=== PATIENT | female | born 1940 | race African-American/Black ===

== ENCOUNTER 2018-04-24 10:22 | Inpatient (IN) | payer MEDICARE ==
--- NOTE | 2018-04-24 10:47 | ER Document Report ---
ED Medical Screen (RME) - General Chief Complaint: General Weakness Stated Complaint: WEAKNESS Time Seen by Provider: 04/24/18 10:39 TRAVEL OUTSIDE OF THE [place] IN LAST 30 DAYS: No Physical Exam - Vital signs Vitals: Temp Pulse Resp BP Pulse Ox 100.6 F H 80 20 157/70 H 94 04/24/18 10:32 04/24/18 10:32 04/24/18 10:32 04/24/18 10:32 04/24/18 10:32 Course - Re-evaluation Re-evalutation: 04/24/18 10:46 77-year-old female with congestive heart failure diabetes hyperlipidemia who is on warfarin and is well and amiodarone the presents for evaluation of profound fatigue over the last 2 days generalized malaise and foul-smelling urine. Is from [place] and flew here today to see her granddaughter. I have seen and evaluated this patient, they have undergone a rapid medical screening examination, they will require reevaluation further examination potential further diagnostics and disposition determination by secondary provider. - Vital Signs Vital signs: Temp Pulse Resp BP Pulse Ox 100.6 F H 80 20 157/70 H 94 04/24/18 10:32 04/24/18 10:32 04/24/18 10:32 04/24/18 10:32 04/24/18 10:32
[2018-04-24] MEDS ORDERED: ACETAMINOPHEN 325 MG TABLET PO ONE (10:48)
[2018-04-24] MEDS ORDERED: CEFTRIAXONE INJ 1000 MG VIAL IV ONE ×2 (10:48→13:15)
[2018-04-24] MEDS ORDERED: ONDANSETRON HCL INJ/PF 4 MG/2 ML SDV IV ONE (11:44)
[2018-04-24] MEDS ORDERED: LABETALOL HCL 200 MG TABLET PO ONE (11:45)
[2018-04-24] MEDS ORDERED: ISOSORBIDE DINITRATE 10 MG TABLET PO ONE (11:45)
[2018-04-24] MEDS ORDERED: AMIODARONE HCL 200 MG TABLET PO ONE (11:45)
--- NOTE | 2018-04-24 11:49 | ER Document Report ---
ED General - General Chief Complaint: General Weakness Stated Complaint: WEAKNESS Time Seen by Provider: 04/24/18 10:39 Mode of Arrival: Wheelchair Information source: Patient, Relative Notes: Patient presents complaining of fatigue and malodorous urine for the past 2 days. Patient just flew here this morning at 8 AM from [place]. Family does report fever with decreased appetite and nausea. Patient denies any chest pain, cough abdominal pain or back pain symptoms at this time. TRAVEL OUTSIDE OF THE [place] IN LAST 30 DAYS: No - HPI Onset: Yesterday Onset/Duration: Persistent Quality of pain: No pain Associated symptoms: Chills, Fever. denies: Chest pain, Nonproductive cough, Productive cough, Diarrhea, Headache, Nausea, Vomiting, Shortness of breath Exacerbated by: Denies Relieved by: Denies Similar symptoms previously: No Recently seen / treated by doctor: No - Related Data Allergies/Adverse Reactions: codeine Allergy (Verified 04/24/18 10:52) Penicillins Allergy (Verified 04/24/18 10:52) Past Medical History - General Information source: Patient, Relative - Social History Smoking Status: Former Smoker Frequency of alcohol use: None Drug Abuse: None Lives with: Family Family History: Reviewed & Not Pertinent Patient has suicidal ideation: No Patient has homicidal ideation: No - Past Medical History Cardiac Medical History: Reports: Hx Congestive Heart Failure, Hx Hypercholesterolemia, Hx Hypertension Neurological Medical History: Reports: Hx Cerebrovascular Accident - Right-sided weakness Endocrine Medical History: Reports: Hx Diabetes Mellitus Type 2 Renal/ Medical History: Denies: Hx Peritoneal Dialysis GI Medical History: Reports: Hx Gastroesophageal Reflux Disease Past Surgical History: Reports: Hx Bowel Surgery, Hx Open Heart Surgery - x2-replaced mitral valve Review of Systems - Review of Systems Constitutional: Chills, Fever EENT: No symptoms reported Cardiovascular: No symptoms reported. denies: Chest pain, Dizziness, Lig htheaded Respiratory: No symptoms reported. denies: Cough Gastrointestinal: Nausea, Poor appetite. denies: Abdominal pain, Diarrhea, Vomiting Genitourinary: Other - Foul-smelling urine. denies: Dysuria Female Genitourinary: No symptoms reported Musculoskeletal: No symptoms reported. denies: Back pain Skin: No symptoms reported Hematologic/Lymphatic: No symptoms reported Neurological/Psychological: Weakness. denies: Headaches Physical Exam - Vital signs Vitals: Temp Pulse Resp BP Pulse Ox 100.6 F H 80 20 157/70 H 94 04/24/18 10:32 04/24/18 10:32 04/24/18 10:32 04/24/18 10:32 04/24/18 10:32 - General General appearance: Alert In distress: None - HEENT Head: Normocephalic, Atraumatic Eyes: Normal Conjunctiva: Normal Nasal: Normal Mouth/Lips: Normal Mucous membranes: Normal Neck: Normal, Supple. No: Lymphadenopathy - Respiratory Respiratory status: No respiratory distress Chest status: Nontender Breath sounds: Rales. No: Rhonchi, Stridor, Wheezing Chest palpation: Normal - Cardiovascular Rhythm: Regular Heart sounds: S1 appreciated, S2 appreciated - Abdominal Inspection: Obese Distension: No distension Bowel sounds: Normal Tenderness: Nontender Organomegaly: No organomegaly - Back Back: Normal, Nontender. No: CVA tenderness - Extremities General upper extremity: Normal inspection, Normal ROM General lower extremity: Normal inspection, Normal ROM. No: Edema - Neurological Neuro grossly intact: Yes Cognition: Normal [place] Coma Scale Eye Opening: Spontaneous Julius Coma Scale Verbal: Oriented Julius Coma Scale Motor: Obeys Commands Julius Coma Scale Total: 15 - Psychological Associated symptoms: Normal affect, Normal mood - Skin Skin Temperature: Warm Skin Moisture: Dry Skin Color: Normal Course - Re-evaluation Re-evalutation: 04/24/18 15:05 Patient continues to deny any complaints aside from fatigue and weakness. We are still waiting a urinalysis as lab has yet to receive the urine specimen. Patient with elevated liver function tests, BMP, BUN and creatinine as well as troponin. Patient denies any chest pain back pain or abdominal pain. EKG without any findings worrisome for acute [place]. Consulted with Dr. Heredia regarding patient presentation. Recommends waiting urinalysis results and then advises consultation with hospitalist here for admission. Does not recommend transfer at this time. No additional orders advised at this time. 04/24/18 16:[address] Lyon who agrees to come and evaluate patient for admission. 04/24/18 17:36 Dr. Lyon states that daughter prefers to have patient transferred to [facility] and or [facility] at this time given her concerns over patient's elevated troponin test. Dr. Lyon states that he did speak with Dr. Nesbitt, the labor mediator, and both of them are comfortable with accepting this patient for admission here but daughter is insistent that patient be transferred. 04/24/18 17:40 Call placed to [facility] at capacity and are not accepting pt's with Mrs Perea diagnosis at this time. Spoke with [facility] transfer bejou who states that they are not accepting patients who are not ICU, acute stroke, pediatrics, high school home economics teacher or STEMI 04/24/18 17:55 Discussed with patient's daughter conversations with yesy Olvera as well as Juan, and the fact that patient does not presently meet their criteria to be accepted as she is not having a STEMI. Patient continues without any chest pain back pain or abdominal pain symptoms. Vital signs are stable at this time. Daughter is agreeable with having patient admitted here. Spoke with Dr. Lyon who does accept patient for admission to telemetry floor. - Vital Signs Vital signs: Temp Pulse Resp BP Pulse Ox 99.3 F 80 27 H 130/56 H 100 04/24/18 15:06 04/24/18 10:32 04/24/18 17:01 04/24/18 17:01 04/24/18 17:01 - Laboratory Result Diagrams: 04/24/18 13:19 04/24/18 13:19 Laboratory results interpreted by me: 04/24/18 04/24/18 04/24/18 12:48 13:19 13:19 WBC 11.2 H Hgb 11.5 L Hct 34.9 L RDW 15.7 H Plt Count 105 L Seg Neutrophils % 86.0 H Lymphocytes % 5.9 L Absolute Neutrophils 9.6 H PT 22.7 H Chloride BUN Creatinine Est GFR ( Amer) Est GFR (Non-Af Amer) Glucose POC Glucose 225 H Direct Bilirubin AST ALT NT-Pro-B Natriuret Pep Urine Protein Urine Blood Ur Leukocyte Esterase 04/24/18 04/24/18 04/24/18 13:19 13:19 15:10 WBC Hgb Hct RDW Plt Count Seg Neutrophils % Lymphocytes % Absolute Neutrophils PT Chloride 109 H BUN 45 H Creatinine 1.81 H Est GFR ( Amer) 33 L Est GFR (Non-Af Amer) 27 L Glucose 216 H POC Glucose Direct Bilirubin 0.8 H AST 629 H ALT 370 H NT-Pro-B Natriuret Pep 27010 H Urine Protein >=500 H Urine Blood MODERATE H Ur Leukocyte Esterase SMALL H Labs- Entire Visit 04/24/18 04/24/18 04/24/18 12:48 13:19 13:19 WBC 11.2 H RBC 3.86 Hgb 11.5 L Hct 34.9 L MCV 90 MCH 29.7 MCHC 32.8 RDW 15.7 H Plt Count 105 L Seg Neutrophils % 86.0 H Lymphocytes % 5.9 L Monocytes % 7.7 Eosinophils % 0.0 Basophils % 0.4 Absolute Neutrophils 9.6 H Absolute Lymphocytes 0.7 Absolute Monocytes 0.9 Absolute Eosinophils 0.0 Absolute Basophils 0.0 PT 22.7 H INR 1.90 VBG pH VBG pCO2 VBG HCO3 VBG Base Excess Sodium Potassium Chloride Carbon Dioxide Anion Gap BUN Creatinine Est GFR ( Amer) Est GFR (Non-Af Amer) Glucose POC Glucose 225 H Lactic Acid Calcium Total Bilirubin Direct Bilirubin Neonat Total Bilirubin Neonat Direct Bilirubin Neonat Indirect Bili AST ALT Alkaline Phosphatase Troponin I NT-Pro-B Natriuret Pep Total Protein Albumin Lipase Urine Color Urine Appearance Urine pH Ur Specific Opal Urine Protein Urine Glucose (UA) Urine Ketones Urine Blood Urine Nitrite Urine Bilirubin Urine Urobilinogen Ur Leukocyte Esterase Urine WBC (Auto) Urine RBC (Auto) Urine Bacteria (Auto) Urine WBC Clumps Squamous Epi Cells Auto Amorphous Sediment Auto Urine Mucus (Auto) Urine Ascorbic Acid 04/24/18 04/24/18 04/24/18 13:19 13:19 13:19 WBC RBC Hgb Hct MCV MCH MCHC RDW Plt Count Seg Neutrophils % Lymphocytes % Monocytes % Eosinophils % Basophils % Absolute Neutrophils Absolute Lymphocytes Absolute Monocytes Absolute Eosinophils Absolute Basophils PT INR VBG pH 7.36 VBG pCO2 37.7 VBG HCO3 21.0 VBG Base Excess -4.0 Sodium 139.3 Potassium 4.1 Chloride 109 H Carbon Dioxide 23 Anion Gap 7 BUN 45 H Creatinine 1.81 H Est GFR ( Amer) 33 L Est GFR (Non-Af Amer) 27 L Glucose 216 H POC Glucose Lactic Acid Calcium 8.9 Total Bilirubin 1.3 Direct Bilirubin 0.8 H Neonat Total Bilirubin Not Reportable Neonat Direct Bilirubin Not Reportable Neonat Indirect Bili Not Reportable AST 629 H ALT 370 H Alkaline Phosphatase 64 Troponin I 0.121 NT-Pro-B Natriuret Pep 10553 H Total Protein 6.5 Albumin 3.5 Lipase 96.0 Urine Color Urine Appearance Urine pH Ur Specific Opal Urine Protein Urine Glucose (UA) Urine Ketones Urine Blood Urine Nitrite Urine Bilirubin Urine Urobilinogen Ur Leukocyte Esterase Urine WBC (Auto) Urine RBC (Auto) Urine Bacteria (Auto) Urine WBC Clumps Squamous Epi Cells Auto Amorphous Sediment Auto Urine Mucus (Auto) Urine Ascorbic Acid 04/24/18 04/24/18 13:19 15:10 WBC RBC Hgb Hct MCV MCH MCHC RDW Plt Count Seg Neutrophils % Lymphocytes % Monocytes % Eosinophils % Basophils % Absolute Neutrophils Absolute Lymphocytes Absolute Monocytes Absolute Eosinophils Absolute Basophils PT INR VBG pH VBG pCO2 VBG HCO3 VBG Base Excess Sodium Potassium Chloride Carbon Dioxide Anion Gap BUN Creatinine Est GFR ( Amer) Est GFR (Non-Af Amer) Glucose POC Glucose Lactic Acid 1.2 Calcium Total Bilirubin Direct Bilirubin Neonat Total Bilirubin Neonat Direct Bilirubin Neonat Indirect Bili AST ALT Alkaline Phosphatase Troponin I NT-Pro-B Natriuret Pep Total Protein Albumin Lipase Urine Color YELLOW Urine Appearance CLOUDY Urine pH 5.0 Ur Specific Opal 1.014 Urine Protein >=500 H Urine Glucose (UA) NEGATIVE Urine Ketones NEGATIVE Urine Blood MODERATE H Urine Nitrite NEGATIVE Urine Bilirubin NEGATIVE Urine Urobilinogen NEGATIVE Ur Leukocyte Esterase SMALL H Urine WBC (Auto) 45 Urine RBC (Auto) 3 Urine Bacteria (Auto) 3+ Urine WBC Clumps MOD Squamous Epi Cells Auto 1 Amorphous Sediment Auto TRACE Urine Mucus (Auto) RARE Urine Ascorbic Acid NEGATIVE - Diagnostic Test Radiology reviewed: Reports reviewed Discharge - Discharge Clinical Impression: Weakness, Abnormal liver function test, Elevated troponin Fever Qualifiers: Fever type: unspecified Qualified Code(s): R50.9 - Fever, unspecified UTI (urinary tract infection) Qualifiers: Urinary tract infection type: site unspecified Hematuria presence: with hematuria Qualified Code(s): N39.0 - Urinary tract infection, site not specified Condition: Fair Disposition: ADMITTED INPATIENT Admitting Provider: Hospitalist Unit Admitted: Telemetry
[2018-04-24 13:42] LABS: ABSOLUTE LYMPHOCYTES (AUTO) 0.7 10^3/uL (0.5-4.7); ABSOLUTE MONOCYTES (AUTO) 0.9 10^3/uL (0.1-1.4); ABSOLUTE NEUT (AUTO) 9.6 10^3/uL (1.7-8.2); BASOPHILS % (AUTO) 0.4 % (0-2); HEMATOCRIT 34.9 % (36.0-47.0); HEMOGLOBIN 11.5 g/dL (12.0-15.5); LYMPHOCYTES % (AUTO) 5.9 % (13-45); MEAN CORPUSCULAR HEMOGLOBIN 29.7 pg (27.0-33.4); MEAN CORPUSCULAR HGB CONC 32.8 g/dL (32.0-36.0); MEAN CORPUSCULAR VOLUME 90 fl (80-97); MONOCYTES % (AUTO) 7.7 % (3-13); PLATELET COUNT 105 10^3/uL (150-450); RED BLOOD COUNT 3.86 10^6/uL (3.72-5.28); RED CELL DISTRIBUTION WIDTH 15.7 % (11.5-14.0); TOTAL CELLS COUNTED % (AUTO) 100 %; WHITE BLOOD COUNT 11.2 10^3/uL (4.0-10.5)
[2018-04-24 13:44] LABS: VENOUS BLOOD PCO2 37.7 mmHg (35-63); VENOUS BLOOD PH 7.36 (7.30-7.42)
[2018-04-24 13:48] LABS: PROTHROMBIN TIME 22.7 SEC (11.4-15.4)
--- NOTE | 2018-04-24 13:53 | RADIOLOGY REPORT (SQ) ---
EXAM DESCRIPTION: CHEST 2 VIEWS COMPLETED DATE/TIME: 04/24/2018 1:38 pm REASON FOR STUDY: fever COMPARISON: None. EXAM PARAMETERS: NUMBER OF VIEWS: two views TECHNIQUE: Digital Frontal and Lateral radiographic views of the chest acquired. RADIATION DOSE: NA LIMITATIONS: none FINDINGS: LUNGS AND PLEURA: No opacities, masses or pneumothorax. No pleural effusion. MEDIASTINUM AND HILAR STRUCTURES: No masses or contour abnormalities. HEART AND VASCULAR STRUCTURES: Cardiomegaly with left chest multi lead pacer status post median wilson otomy. BONES: No acute findings. HARDWARE: None in the chest. OTHER: No other significant finding. IMPRESSION: Cardiomegaly without acute abnormality of the lungs. No focal airspace opacity. TECHNICAL DOCUMENTATION: JOB ID: [id number] [employer]- All Rights Reserved Reading location - IP/workstation name: [email or web address]
[2018-04-24 14:07] LABS: ALANINE AMINOTRANSFERASE 370 U/L (9-52); ALBUMIN 3.5 g/dL (3.5-5.0); ALKALINE PHOSPHATASE 64 U/L (38-126); ANION GAP 7 (5-19); ASPARTATE AMINO TRANSFERASE 629 U/L (14-36); BILIRUBIN,DIRECT 0.8 mg/dL (0.0-0.4); BILIRUBIN,TOTAL 1.3 mg/dL (0.2-1.3); BLOOD UREA NITROGEN 45 mg/dL (7-20); CALCIUM 8.9 mg/dL (8.4-10.2); CARBON DIOXIDE 23 mmol/L (22-30); CHLORIDE 109 mmol/L (98-107); GLUCOSE 216 mg/dL (75-110); POTASSIUM 4.1 mmol/L (3.6-5.0); SODIUM 139.3 mmol/L (137-145); TOTAL PROTEIN 6.5 g/dL (6.3-8.2)
[2018-04-24 14:29] LABS: TROPONIN I 0.121 ng/mL
[2018-04-24 15:23] LABS: AMORPHOUS SEDIMENT,URINE TRACE /HPF; APPEARANCE,URINE CLOUDY; BILIRUBIN,URINE NEGATIVE (NEGATIVE); COLOR,URINE YELLOW; GLUCOSE, URINE NEGATIVE (NEGATIVE); KETONES,URINE NEGATIVE (NEGATIVE); LEUKOCYTE ESTERASE,URINE SMALL (NEGATIVE); NITRITE,URINE NEGATIVE (NEGATIVE); PROTEIN,URINE >=500 mg/dL (NEGATIVE); URINE SPECIFIC GRAVITY 1.014; UROBILINOGEN,URINE NEGATIVE mg/dL (<2.0)
[2018-04-24] MEDS ORDERED: GLUCAGON,HUMAN RECOMB 1 MG INJ IM PRN (18:10)
[2018-04-24] MEDS ORDERED: DEXTROSE 50%-WATER 25 GM/50 ML DISP.SYRIN IV PRN ×2 (18:10)
[2018-04-24] MEDS ORDERED: DEXTROSE 40% GEL 15 GM TUBE PO PRN ×2 (18:10)
[2018-04-24] MEDS ORDERED: HYDRALAZINE HCL INJ/PF 20 MG/1 ML SDV IV PRN (18:12)
--- NOTE | 2018-04-24 18:26 | RADIOLOGY REPORT (SQ) ---
EXAM DESCRIPTION: CT ABD/PELVIS NO ORAL OR IV COMPLETED DATE/TIME: 04/24/2018 6:11 pm REASON FOR STUDY: acute renal failure,elevated liver enzymes COMPARISON: None. TECHNIQUE: CT scan of the abdomen and pelvis performed without intravenous or oral contrast. Images reviewed with lung, soft tissue, and bone windows. Reconstructed coronal and sagittal MPR images revi ewed. All images stored on PACS. All CT scanners at this facility use dose modulation, iterative reconstruction, and/or weight based d osing when appropriate to reduce radiation dose to as low as reasonably achievable (ALARA). [facility]: Dose Right [facility]: CareDose [facility]: Dose Right [facility]: Teradose 4D [facility]: [facility] RADIATION DOSE: CT Rad equipment meets quality standard of care and radiation dose reduction techniq ues were employed. CTDIvol: 14.8 mGy. DLP: 778 mGy-cm.mGy. LIMITATIONS: None. FINDINGS: LOWER CHEST: No significant findings. No nodules or infiltrates. NON-CONTRASTED LIVER, SPLEEN, ADRENALS: Evaluation limited by lack of IV contrast. No identified sign ificant masses. PANCREAS: No masses. No peripancreatic inflammatory changes. GALLBLADDER: There appear to be some tiny gallstones. RIGHT KIDNEY AND URETER: No suspicious masses. Assessment limited by lack of IV contrast. There are some small vascular calcifications. No hydronephrosis or hydroureter. LEFT KIDNEY AND URETER: No suspicious masses. Assessment limited by lack of IV contrast. A small va scular calcification is present. No hydronephrosis or hydroureter. AORTA AND RETROPERITONEUM: No aneurysm. No retroperitoneal masses or adenopathy. BOWEL AND PERITONEAL CAVITY: No obvious masses or inflammatory changes. No free fluid. APPENDIX: Normal. PELVIS, BLADDER, AND ABDOMINAL WALL:No abnormal masses. No free fluid. Bladder normal. BONES: No significant findings. OTHER: No other significant finding. IMPRESSION: No acute findings in the abdomen or pelvis. There are some very small renal vascular ca lcifications. COMMENT: Quality ID # [id number]: Final reports with documentation of one or more dose reduction techniques (e.g., Automated exposure control, adjustment of the mA and/or kV according to patient size, use of iterative reconstruction technique) TECHNICAL DOCUMENTATION: JOB ID: [id number] [employer]- All Rights Reserved Reading location - IP/workstation name: [email or web address]
[2018-04-24] MEDS ORDERED: ACETAMINOPHEN 325 MG TABLET PO PRN (18:30)
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
[2018-04-24] MEDS ORDERED: HEPARIN SOD (PORCINE) 5,000 UNIT/ML 1 ML SYRINGE SUBCUT SCH (22:00)
[2018-04-24] MEDS ORDERED: INSULIN GLARGINE,HUM.REC.ANLOG 300 UNIT/3 ML INSULN.PEN SUBCUT SCH (22:00)
--- NOTE | 2018-04-24 22:55 | EKG REPORT ---
SEVERITY:- ABNORMAL ECG - ACCELERATED JUNCTIONAL RHYTHM PROBABLE LVH WITH SECONDARY REPOL ABNRM BORDERLINE PROLONGED QT INTERVAL : Confirmed by: Jaclyn Zamarripa MD 24-Apr-2018 22:54:51
[2018-04-24] MEDS: BUMETANIDE 1 MG TABLET PO SCH (22:57)
[2018-04-24] MEDS: ASPIRIN 81 MG TABLET, CHEWABLE PO SCH (22:57)
[2018-04-24] MEDS: WARFARIN SODIUM 3 MG TABLET PO SCH (22:58)
[2018-04-24] MEDS: ATORVASTATIN CALCIUM 20 MG TABLET PO SCH (22:58)
[2018-04-25 05:22] LABS: ABSOLUTE LYMPHOCYTES (AUTO) 1.2 10^3/uL (0.5-4.7); ABSOLUTE NEUT (AUTO) 6.5 10^3/uL (1.7-8.2); BASOPHILS % (AUTO) 0.6 % (0-2); EOSINOPHILS % (AUTO) 0.5 % (0-6); HEMATOCRIT 30.3 % (36.0-47.0); LYMPHOCYTES % (AUTO) 13.5 % (13-45); MEAN CORPUSCULAR HEMOGLOBIN 30.2 pg (27.0-33.4); MEAN CORPUSCULAR HGB CONC 33.1 g/dL (32.0-36.0); MEAN CORPUSCULAR VOLUME 91 fl (80-97); MONOCYTES % (AUTO) 11.9 % (3-13); RED BLOOD COUNT 3.32 10^6/uL (3.72-5.28); RED CELL DISTRIBUTION WIDTH 15.9 % (11.5-14.0); SEGMENTED NEUTROPHILS % (AUTO) 73.5 % (42-78); TOTAL CELLS COUNTED % (AUTO) 100 %; WHITE BLOOD COUNT 8.8 10^3/uL (4.0-10.5)
[2018-04-25 05:25] LABS: A TYPE INFLUENZA AG NEGATIVE (NEGATIVE); B INFLUENZA AG NEGATIVE (NEGATIVE)
[2018-04-25 05:40] LABS: ALANINE AMINOTRANSFERASE 404 U/L (9-52); ALBUMIN 2.7 g/dL (3.5-5.0); ALKALINE PHOSPHATASE 59 U/L (38-126); ANION GAP 8 (5-19); ASPARTATE AMINO TRANSFERASE 466 U/L (14-36); BILIRUBIN,DIRECT 0.5 mg/dL (0.0-0.4); BILIRUBIN,TOTAL 0.7 mg/dL (0.2-1.3); BLOOD UREA NITROGEN 53 mg/dL (7-20); CALCIUM 8.5 mg/dL (8.4-10.2); CARBON DIOXIDE 21 mmol/L (22-30); CHLORIDE 107 mmol/L (98-107); GLUCOSE 275 mg/dL (75-110); POTASSIUM 4.2 mmol/L (3.6-5.0); SODIUM 135.5 mmol/L (137-145); TOTAL PROTEIN 5.3 g/dL (6.3-8.2)
[2018-04-25 05:48] LABS: CREATINE KINASE MB 0.77 ng/mL (<4.55); TROPONIN I 0.093 ng/mL
[2018-04-25 05:55] LABS: PLATELET COUNT 85 10^3/uL (150-450)
[2018-04-25] MEDS: INSULIN LISPRO 100 UNIT/ML 3 ML VIAL SUBCUT PRN ×2 (08:14→15:22)
[2018-04-25] MEDS: CEFTRIAXONE 1 GM/D5W RTU 1 GM/50 ML RTUPB IV SCH (10:33)
[2018-04-25] MEDS: BUMETANIDE 1 MG TABLET PO SCH ×2 (10:33→10:42)
[2018-04-25 11:33] LABS: CREATINE KINASE MB 0.89 ng/mL (<4.55); TROPONIN I 0.07 ng/mL
--- NOTE | 2018-04-25 12:41 | EKG REPORT ---
SEVERITY:- ABNORMAL ECG - ATRIAL-PACED COMPLEXES PROLONGED QT INTERVAL : Confirmed by: Jaclyn Zamarripa MD 25-Apr-2018 12:41:02
--- NOTE | 2018-04-25 12:42 | EKG REPORT ---
SEVERITY:- ABNORMAL ECG - ATRIAL-PACED COMPLEXES NONSPECIFIC INTRAVENTRICULAR CONDUCTION DELAY : Confirmed by: Jaclyn Zamarripa MD 25-Apr-2018 12:41:08
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
[2018-04-25 17:01] LABS: CREATINE KINASE MB 0.99 ng/mL (<4.55); TROPONIN I 0.05 ng/mL
[2018-04-25] MEDS ORDERED: LIDOCAINE 2% VISCOUS SOLN 20 ML UDCUP PO ONE (18:15)
[2018-04-25] MEDS ORDERED: MAG HYDROX/AL HYDROX/SIMETH SUSP 30 ML UDCUP PO ONE (18:20)
[2018-04-25] MEDS ORDERED: METOCLOPRAMIDE HCL ORAL SOLN 10 MG/10 ML UDCUP PO ONE (18:20)
[2018-04-25] MEDS: ASPIRIN 81 MG TABLET, CHEWABLE PO SCH (21:37)
[2018-04-25] MEDS: INSULIN GLARGINE,HUM.REC.ANLOG 300 UNIT/3 ML INSULN.PEN SUBCUT SCH (21:37)
[2018-04-25] MEDS: WARFARIN SODIUM 3 MG TABLET PO SCH (21:37)
[2018-04-25] MEDS: ATORVASTATIN CALCIUM 20 MG TABLET PO SCH (21:37)
--- NOTE | 2018-04-25 22:12 | PDOC CONSULTATION ---
Consultation-Blank Consultation: CARDIOLOGY CONSULTATION by Dr. Jaclyn Zamarripa on 04/25/2018. Patient was seen on 04/25/2018 at 4 PM. 60 minutes spent on the patient, with more than 50% of time spent in direct patient care a few records from her aquatic director from [place] were reviewed. Await full records from [place], including her ho spital admission and her valve replacement surgical report. REASON FOR CONSULTATION: Patient with a history of mitral valve replacement, chronic kidney disease, admitted with generalized weakness diagnosis urinary tract infection, but with the per patient's troponin I being elevated. History PRESENT ILLNESS: Patient admitted with fever chills and rigors and left flank pain, and has been diagnosed and treated with antibiotics for acute pyelonephritis. Incidentally the patient's troponin I was slightly elevated with a peak troponin 0 0.152. The patient has no chest pain, and there is no major EKG changes. As per the patient both times when she had a mitral valve replaced in 1977 in 1989 she had no coronary artery disease, and there was no coronary artery bypass graft placement. Hence this is most likely secondary to supply demand mismatch. The patient denies any palpitations. There is no recurrence of TIA CVA symptoms . As per the patient and the patient's granddaughter the patient's renal function is at baseline, and is a stage IV chronic kidney disease. She has no palpitations or recurrence of atrial fibrillation. There is no dizziness, or near syncope or syncope. There is no bleeding on Coumadin. PAST MEDICAL ILLNESS: History of hypertension present history of diabetes mellitus present. History of mitral valve replacement earlier in the of DHE drip porcine valve replacement in the mitral valve position. Subsequently due to restenosis the patient had a [employer]t mitral valve replacement in 1989. Subsequently she has been on Coumadin. She denies history of IN or coronary artery disease or anginal symptoms. 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 Since then no syncope. She has been maintained in sinus mechanism on amiodarone, although admission EKG sinus is suggestive of accelerated junctional rhythm. The colton ent's blood pressure stable, and the patient has no symptoms or hemodynamic compromise. She has a history of diabetes mellitus type 2 insulin-dependent. There is no history of thyroid disease. There is no history of headaches migraines or seizures. She has a prior history of CVA with right-sided weakness which is very minimal, she is able to ambulate with a walker. It is not clear what the patient has COPD, but the patient is on Advair Diskus for this. She has a prior history of congestive heart failure, but none recently, and especially for the past several years there is been no recurrence of congestive heart failure. There is no history of syncope. At present she has no recent leg edema. She claims she had a stent placed in the right groin artery. PAST SURGICAL HISTORY: Porcine mitral valve replacement in 1977, and subsequently Saint [employer]t prosthetic mitral valve replacement in 1989. No history of coronary bypass grafts. History of permanent pacemaker placement. History of? Stent in the right iliac versus lower aortic stent. SOCIAL HISTORY: The patient quit smoking long time ago. There is no history of EtOH abuse. ALLERGIES: She is allergic to codeine and penicillins. FAMILY HISTORY: Is positive for hypertension, and history of myocardial infarction is in a sister, at the age of 60. DISPOSITION: The patient is a full code. Her grand daughter is her surrogate healthcare decision maker. REVIEW SYSTEMS: CONSTITUTIONAL: Complains of fever chills rigors. She also has had left flank pain. HEAD: Denies headaches or head injury. EYES: NO HISTORY OF AMBLYOPIA DIPLOPIA. NO HISTORY OF AMAUROSIS FUGAX. Ears: No history of hearing loss. No history of tinnitus. No history of recurrent ear infections. No vertigo. NOSE: No history of hayfever no history of nosebleeds. No history of nasal polyps. MOUTH: No altered taste sensation. No bleeding from the gums. THROAT: No history of odynophagia or dysphagia, no recurrent sore throats. SKIN: No history of pruritus. No history of psoriasis. No history of skin cancer. No history of yellowish discoloration of the skin. NECK: No history of neck pain. No swelling in the neck. No goiter. LUNGS: She has a questionable history of COPD. No recent wheezing or cough or sputum production. No symptoms of upper or lower respiratory tract infections. No history of pulmonary embolism. No history of sleep apnea. No history of pleuritic chest pain. No history of hemoptysis. CARDIAC: History of hypertension present no history of coronary artery disease or IN or anginal symptoms. History of mitral valve replacement x2 as mentioned earlier. No history of endocarditis. Past history of congestive heart failure none several years. History of atrial fibrillation paroxysmal. Note that the patient's echo in [place] showed moderate to severe pulmonary hypertension. Normal left ventricular ejection fraction. No recent symptoms of PND orthopnea or leg edema. ENDOCRINE: History of diabetes mellitus type 2 insulin-dependent. No polydipsia polyuria. No history of heat or cold intolerance. No hirsutism. No excessive sweating. MUSCULOSKELETAL: Denies arthritis or collagen vascular disease. GI: History of GERD present but no history of GI bleed. No history of hepatitis.. No history of jaundice. No history of ascites. Note this admission the patient's liver function tests are abnormal. No abdominal pain. No GI bleed. No altered bowel movements. RENAL: Patient admitted with left flank pain and symptoms of UTI. She has a diagnosis of pyelonephritis, and is being treated with antibiotics. She has history of chronic kidney disease stage IV. She does have some dysuria. And pyuria. But no hematuria.. COMSEC MANAGER: Prior history of CVA with right-sided weakness which is r ecovered and she is subtle/minimal right-sided weakness. She is able to walk with a walker. No history of recurrence of symptoms of TIA CVA. No sleep apnea. No history of headaches migraines or seizures. PSYCHIATRIC: No history of anxiety or depression. No suicidal ideation no homicidal ideation. VASCULAR: History of peripheral vascular disease, the patient alludes vaguely to having a stent placed in the right groin artery versus lower abdominal aorta. Will need records for this. No symptoms of claudication. No DVT. HEMATOLOGICAL: No history of bleeding diathesis no history of clotting disorders. PHYSICAL EXAMINATION: The patient is mildly obese. In no acute distress. She is well-groomed 04/25/18 12:11 Temperature 98.6 F Temperature Oral Source Pulse Rate 76 Respiratory 20 Rate Blood Pressure 111/55 L Blood Pressure 73 Mean BP Location Left Arm BP Position Sitting O2 Sat by Pulse 98 Oximetry Oxygen Delivery Room Air Method HEAD: Is atraumatic normocephalic. EYES: Pupils are equal round regular reactive to light accommodation. Extraocular movements are normal. There is no clinical pallor. There is no scleral icterus. EARS: Tympanic membranes are intact. External auditory canals are clear. NOSE: Nasal mucous membranes are moist. There is no inflammation of the nasal mucous membrane. There is no deviated nasal septum. MOUTH: Mucous membranes of the mouth are moist. Tongue is moist. There is no ulcers. There is no bleeding of the gums. THROAT: There is no redness of the oropharynx. There is no exudates. SKIN: There is no petechia or ecchymosis. There is no skin lesions or skin rashes. NECK: Is supple. There is no JVD. Carotids are equal there is no bruits. There is no lymphadenopathy. There is no goiter. Trachea central. There is no accessory muscle respiration use. LUNGS: Is clear to auscultation percussion, without any rhonchi rales or wheezing. There is no chest wall tenderness. HEART: S1-S2 is heard. There is no S3 gallop there is no S4 gallop. There is a crisp click of the prosthetic mitral valve heard. There is no mitral regurgitation. There is no aortic stenosis or aortic regurgitation murmur. There is no rub. ABDOMEN: Is soft. There is nontender. There is no hepatosplenomegaly. Bowel sounds are well heard. EXTREMITIES: Femorals are slightly diminished. There is no femoral bruits. Leg pulses are well felt. There is no pedal edema. There is no DVT or cellulitis. There is no calf tenderness. There is no cyanosis or clubbing. COMSEC MANAGER: Patient is conscious awake alert oriented x3, with subtle right-sided weakness. PSYCHIATRIC: The patient judgment and insight are intact her affect is normal. 04/24/18 04/24/18 04/24/18 13:19 13:19 15:45 Sodium Potassium Chloride Carbon Dioxide Anion Gap BUN Creatinine Est GFR ( Amer) Glucose POC Glucose Lactic Acid 1.2 Calcium Total Bilirubin Direct Bilirubin Neonat Total Bilirubin Neonat Direct Bilirubin Neonat Indirect Bili AST ALT Alkaline Phosphatase Troponin I 0.121 0.152 NT-Pro-B Natriuret Pep 48762 H Total Protein Albumin 04/24/18 04/25/18 21:08 04:27 Sodium 135.5 L Potassium 4.2 Chloride 107 Carbon Dioxide 21 L Anion Gap 8 BUN 53 H Creatinine 2.41 H Est GFR ( Amer) 24 L Glucose 275 H POC Glucose 206 H Lactic Acid Calcium 8.5 Total Bilirubin 0.7 Direct Bilirubin 0.5 H Neonat Total Bilirubin Not Reportable Neonat Direct Bilirubin Not Reportable Neonat Indirect Bili Not Reportable AST 466 H ALT 404 H Alkaline Phosphatase 59 Troponin I NT-Pro-B Natriuret Pep Total Protein 5.3 L Albumin 2.7 L 04/24/18 18:10 Dextrose 50%-Water [Dextrose Inj 50% Syringe (25 gm/50 ml)] 12.5 gm IV PRN PRN Dextrose 50%-Water [Dextrose Inj 50% Syringe (25 gm/50 ml)] 25 gm IV PRN PRN Dextrose [Glutose 40% Gel 15 gm Tube] 15 gm PO PRN PRN Dextrose [Glutose 40% Gel 15 gm Tube] 30 gm PO PRN PRN Glucagon,Human Recombinant [Glucagen Inj 1 mg Vial] 1 mg IM PRN PRN Insulin Lispro [Humalog Insulin 100 Unit/1 ml 3 ml Vial] 0 - 12 unit SUBCUT ACHSP PRN 04/24/18 18:12 Hydralazine HCl [Apresoline Inj/Pf 20 mg/1 ml Sdv] 10 mg IV Q4HP PRN 04/24/18 18:30 Acetaminophen [Tylenol 325 mg Tablet] 650 mg PO Q6H PRN 04/24/18 19:15 Bumetanide [Bumex 1 mg Tablet] 1 mg PO DAILY 04/24/18 22:00 Aspirin [Aspirin 81 mg Chewable Tablet] 81 mg PO QHS Atorvastatin Calcium [Lipitor 20 mg Tablet] 20 mg PO QHS Warfarin Sodium [Coumadin 3 mg Tablet] 3 mg PO QHS 04/25/18 10:00 Ceftriaxone 1 gm/D5w RTU [Rocephin RTU 1 gm/D5w 50 ml Premix] 1 gm in 50 ml IV DAILY 04/25/18 18:15 Lidocaine HCl [Xylocaine 2% Viscous Soln 20 ml Udcup] 15 ml PO NOW ONE 04/25/18 18:20 Mag Hydrox/Al Hydrox/Simeth [Maalox Plus Susp 30 Udcup] 30 ml PO NOW ONE Metoclopramide HCl [Reglan Oral Soln 10 mg/10 ml Udcup] 10 mg PO NOW ONE 04/25/18 22:00 Insulin Glargine,Hum.rec.anlog [Lantus Insulin Inj 300 Unit/3 ml Pen] 18 unit SUBCUT QHS 04/26/18 06:00 Lansoprazole [Prevacid 30 mg Odt Tablet] 30 mg PO Q6AM 04/26/18 13:00 Warfarin Sodium [Coumadin 5 mg Tablet] 5 mg PO NOW ONE 04/26/18 18:00 Hydralazine HCl [Apresoline 25 mg Tablet] 25 mg PO BID CHEST X-ray: Shows cardiomegaly without any infiltrates. EKG: Shows accelerated junctional rhythm versus atrial paced rhythm with ventricular capture. LVH with possible strain pattern. The patient's abdominal CT: Shows no acute findings. There is small renal vascular calcifications. IMPRESSION/RECOMMENDATION: 1.PYELONEPHRITIS/UTI: Patient improving continue antibiotics. 2. Elevated troponin I: No evidence of non-ST elevation IN. Troponin I elevation is secondary to supply demand mismatch, due to the patient's acute infection, and chronic kidney disease. 3. Status post mitral valve replacement x2. In 1977 the patient had a porcine valve replacement. Subsequently due to restenosis the patient had a [employer] metallic mitral valve replacement. Patient on Coumadin. INR on Coumadin is subtherapeutic. We will give a dose of 5000 units of heparin and give an extra dose of Coumadin 5 mg p.o. now continue patient on 3 nightly usual dose of Coumadin. Recheck the patient's PT/INR in the a.m. Note that the patient states that she had no coronary artery disease at the time of mitral valve replacements. 4. Hypertension: Seems to be slightly elevated. Will increase antihyp ertensives as needed. 5. Diabetes mellitus. Continue antidiabetic treatment. 6. Chronic kidney disease stage IV: Awaiting nephrology consult. 7. Normal normal left ventricular ejection fraction, 8. Moderate to severe pulmonary hypertension with right ventricle systolic pressure of 63 mmHg by report of echo, done in [place], on chart. 9.? COPD. 10. History of paroxysmal atrial fibrillation: No recurrence. 11. History of permanent pacemaker placement for tachybradycardia syndrome. 12. Old CVA, with residual very minimal right-sided weakness. 13. Abnormal liver function tests. We will get records to see if the patient's amiodarone can be decreased. 14. GERD: Stable on current treatment. We will get records from [place]. We got some office records of her ec hocardiogram, which shows normal left atrial Function. And moderate to severe tricuspid regurgitation, with moderate to severe pulmonary hypertension with right ventricle systolic pressure of 63 mmHg. In view of the patient's abnormal liver function tests, and the patient's pulmonary hypertension, will either try to decrease the patient's amiodarone, or totally stop the patient's amiodarone. We will wait till the records are obtained. Medical decision making is of high complexity. Medications have been reviewed. We will also get thyroid function tests. Later would recommend that the patient have an outpatient full PFTs with [facility]CO. Discussed management plan with attending physician on the case. The patient and the granddaughter know that the patient needs to take antibiotics for SBE prophylaxis prior to dental, GI, and surgeries/procedures, in view of the patient's prosthetic mitral valve replacement. Also the importance of keeping the INR between 3 and 3.5 discussed with them. Note the patient is a full code. Her granddaughter Ms. Marisol Chávez is a healthcare power of contracts attorney.
[2018-04-26 06:00] LABS: PROTHROMBIN TIME 21.8 SEC (11.4-15.4)
[2018-04-26 06:08] LABS: ABSOLUTE BASOPHILS # (AUTO) 0.1 10^3/uL (0.0-0.2); ABSOLUTE EOSINOPHILS # (AUTO) 0.1 10^3/uL (0.0-0.6); ABSOLUTE LYMPHOCYTES (AUTO) 1.1 10^3/uL (0.5-4.7); ABSOLUTE MONOCYTES (AUTO) 0.9 10^3/uL (0.1-1.4); ABSOLUTE NEUT (AUTO) 5.2 10^3/uL (1.7-8.2); BASOPHILS % (AUTO) 0.8 % (0-2); EOSINOPHILS % (AUTO) 1.8 % (0-6); HEMATOCRIT 29.2 % (36.0-47.0); HEMOGLOBIN 9.7 g/dL (12.0-15.5); LYMPHOCYTES % (AUTO) 14.8 % (13-45); MEAN CORPUSCULAR HEMOGLOBIN 29.8 pg (27.0-33.4); MEAN CORPUSCULAR HGB CONC 33.1 g/dL (32.0-36.0); MEAN CORPUSCULAR VOLUME 90 fl (80-97); MONOCYTES % (AUTO) 11.9 % (3-13); RED BLOOD COUNT 3.24 10^6/uL (3.72-5.28); RED CELL DISTRIBUTION WIDTH 15.5 % (11.5-14.0); SEGMENTED NEUTROPHILS % (AUTO) 70.7 % (42-78); TOTAL CELLS COUNTED % (AUTO) 100 %; WHITE BLOOD COUNT 7.3 10^3/uL (4.0-10.5)
[2018-04-26] MEDS: LANSOPRAZOLE 30 MG TAB.RAP.DR PO SCH (06:09)
[2018-04-26 06:32] LABS: PLATELET COUNT 90 10^3/uL (150-450)
[2018-04-26 06:50] LABS: ALBUMIN 2.8 g/dL (3.5-5.0); ANION GAP 6 (5-19); BLOOD UREA NITROGEN 58 mg/dL (7-20); CARBON DIOXIDE 23 mmol/L (22-30); CHLORIDE 110 mmol/L (98-107); GLUCOSE 159 mg/dL (75-110); SODIUM 139.3 mmol/L (137-145); TOTAL PROTEIN 5.4 g/dL (6.3-8.2)
[2018-04-26 06:52] LABS: ALANINE AMINOTRANSFERASE 307 U/L (9-52); ALKALINE PHOSPHATASE 62 U/L (38-126); ASPARTATE AMINO TRANSFERASE 163 U/L (14-36); BILIRUBIN,DIRECT 0.4 mg/dL (0.0-0.4); BILIRUBIN,TOTAL 0.5 mg/dL (0.2-1.3); CALCIUM 8.5 mg/dL (8.4-10.2)
[2018-04-26 07:41] LABS: CREATINE KINASE MB 1.23 ng/mL (<4.55); TROPONIN I 0.06 ng/mL
[2018-04-26 08:37] LABS: HEPATITIS A AB IGM Negative (Negative); HEPATITIS B CORE AB IGM Negative (Negative); HEPATITS B SURFACE ANTIGEN Negative (Negative)
[2018-04-26 08:44] LABS: ANION GAP 6 (5-19); BLOOD UREA NITROGEN 57 mg/dL (7-20); CALCIUM 8.6 mg/dL (8.4-10.2); CARBON DIOXIDE 25 mmol/L (22-30); CHLORIDE 110 mmol/L (98-107); GLUCOSE 167 mg/dL (75-110); POTASSIUM 4.1 mmol/L (3.6-5.0); SODIUM 140.6 mmol/L (137-145)
[2018-04-26] MEDS: CEFTRIAXONE 1 GM/D5W RTU 1 GM/50 ML RTUPB IV SCH (09:00)
[2018-04-26] MEDS: INSULIN LISPRO 100 UNIT/ML 3 ML VIAL SUBCUT PRN ×3 (09:00→21:38)
[2018-04-26 09:15] LABS: HEPATITIS C VIRUS ANTIBODY 0.1 s/co ratio (0.0-0.9)
[2018-04-26] MEDS: BUMETANIDE 1 MG TABLET PO SCH (10:28)
--- NOTE | 2018-04-26 12:45 | EKG REPORT ---
SEVERITY:- ABNORMAL ECG - ATRIAL-PACED RHYTHM PROBABLE LEFT VENTRICULAR HYPERTROPHY PROLONGED QT INTERVAL : Confirmed by: Jaclyn Zamarripa MD 26-Apr-2018 12:44:38
[2018-04-26] MEDS ORDERED: WARFARIN SODIUM 5 MG TABLET PO ONE (13:00)
[2018-04-26] MEDS ORDERED: HEPARIN SOD (PORCINE) 5,000 UNIT/ML 1 ML SYRINGE SUBCUT ONE (13:00)
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
[2018-04-26] MEDS: HYDRALAZINE HCL 25 MG TABLET PO SCH (17:59)
[2018-04-26] MEDS: ASPIRIN 81 MG TABLET, CHEWABLE PO SCH (21:27)
[2018-04-26] MEDS: ATORVASTATIN CALCIUM 20 MG TABLET PO SCH (21:28)
[2018-04-26] MEDS: WARFARIN SODIUM 3 MG TABLET PO SCH (21:28)
[2018-04-26] MEDS: INSULIN GLARGINE,HUM.REC.ANLOG 300 UNIT/3 ML INSULN.PEN SUBCUT SCH (21:38)
[2018-04-27] MEDS: LANSOPRAZOLE 30 MG TAB.RAP.DR PO SCH (05:08)
[2018-04-27 06:37] LABS: ABSOLUTE EOSINOPHILS # (AUTO) 0.1 10^3/uL (0.0-0.6); ABSOLUTE MONOCYTES (AUTO) 0.7 10^3/uL (0.1-1.4); ABSOLUTE NEUT (AUTO) 3.8 10^3/uL (1.7-8.2); BASOPHILS % (AUTO) 0.8 % (0-2); EOSINOPHILS % (AUTO) 1.9 % (0-6); HEMATOCRIT 28.5 % (36.0-47.0); HEMOGLOBIN 9.5 g/dL (12.0-15.5); LYMPHOCYTES % (AUTO) 17.4 % (13-45); MEAN CORPUSCULAR HEMOGLOBIN 30.1 pg (27.0-33.4); MEAN CORPUSCULAR HGB CONC 33.3 g/dL (32.0-36.0); MEAN CORPUSCULAR VOLUME 91 fl (80-97); MONOCYTES % (AUTO) 12.4 % (3-13); PLATELET COUNT 107 10^3/uL (150-450); RED BLOOD COUNT 3.15 10^6/uL (3.72-5.28); RED CELL DISTRIBUTION WIDTH 15.5 % (11.5-14.0); SEGMENTED NEUTROPHILS % (AUTO) 67.5 % (42-78); TOTAL CELLS COUNTED % (AUTO) 100 %; WHITE BLOOD COUNT 5.6 10^3/uL (4.0-10.5)
[2018-04-27 06:46] LABS: INTERNATIONAL RATION (INR) 2.01; PROTHROMBIN TIME 23.7 SEC (11.4-15.4)
[2018-04-27 07:00] LABS: ALANINE AMINOTRANSFERASE 205 U/L (9-52); ALBUMIN 2.8 g/dL (3.5-5.0); ALKALINE PHOSPHATASE 60 U/L (38-126); ANION GAP 6 (5-19); ASPARTATE AMINO TRANSFERASE 67 U/L (14-36); BILIRUBIN,DIRECT 0.4 mg/dL (0.0-0.4); BILIRUBIN,TOTAL 0.4 mg/dL (0.2-1.3); BLOOD UREA NITROGEN 46 mg/dL (7-20); CALCIUM 8.4 mg/dL (8.4-10.2); CARBON DIOXIDE 24 mmol/L (22-30); CHLORIDE 112 mmol/L (98-107); GLUCOSE 139 mg/dL (75-110); POTASSIUM 4.3 mmol/L (3.6-5.0); SODIUM 141.9 mmol/L (137-145); TOTAL PROTEIN 5.5 g/dL (6.3-8.2)
[2018-04-27 07:13] LABS: FREE T4 (FREE THYROXINE) 2.19 ng/dL (0.78-2.19)
[2018-04-27 07:27] LABS: THYROID STIMULATING HORMONE 1.88 uIU/mL (0.47-4.68)
[2018-04-27] MEDS: HYDRALAZINE HCL 25 MG TABLET PO SCH ×2 (10:23→17:57)
[2018-04-27] MEDS: CEFTRIAXONE 1 GM/D5W RTU 1 GM/50 ML RTUPB IV SCH (10:24)
[2018-04-27] MEDS: AMIODARONE HCL 200 MG TABLET PO SCH (10:59)
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
[2018-04-27] MEDS: INSULIN LISPRO 100 UNIT/ML 3 ML VIAL SUBCUT PRN ×2 (12:59→21:37)
--- NOTE | 2018-04-27 13:13 | PDOC PROGRESS REPORT ---
Subjective Progress Note for:: 04/27/18 Reason For Visit: PYELONEPHRITIS,ANTOLIN ON CKD,ELEVATED TROP Physical Exam Vital Signs: Temp Pulse Resp BP Pulse Ox 98.8 F 79 16 151/69 H 99 04/27/18 07:24 04/27/18 07:24 04/27/18 07:24 04/27/18 07:24 04/27/18 07:24 Intake & Output 04/26/18 04/27/18 04/28/18 06:59 06:59 06:59 Intake Total 879 405 50 Output Total 0 Balance 879 405 50 Weight 166 lb 14.239 oz 166 lb 7.184 oz Results Laboratory Results: 04/27/18 05:46 04/27/18 05:46 04/26/18 04/27/18 04/27/18 22:25 05:46 05:46 WBC RBC Hgb Hct MCV MCH MCHC RDW Plt Count Seg Neutrophils % Lymphocytes % Monocytes % Eosinophils % Basophils % Absolute Neutrophils Absolute Lymphocytes Absolute Monocytes Absolute Eosinophils Absolute Basophils Sodium 141.9 Potassium 4.3 Chloride 112 H Carbon Dioxide 24 Anion Gap 6 BUN 46 H Creatinine 1.58 H Est GFR ( Amer) 38 L Est GFR (Non-Af Amer) 32 L Glucose 139 H Calcium 8.4 Total Bilirubin 0.4 AST 67 H ALT 205 H Alkaline Phosphatase 60 Total Protein 5.5 L Albumin 2.8 L TSH 1.88 Free T4 2.19 Free T3 pg/mL 2.95 04/27/18 05:46 WBC 5.6 RBC 3.15 L Hgb 9.5 L Hct 28.5 L MCV 91 MCH 30.1 MCHC 33.3 RDW 15.5 H Plt Count 107 L Seg Neutrophils % 67.5 Lymphocytes % 17.4 Monocytes % 12.4 Eosinophils % 1.9 Basophils % 0.8 Absolute Neutrophils 3.8 Absolute Lymphocytes 1.0 Absolute Monocytes 0.7 Absolute Eosinophils 0.1 Absolute Basophils 0.0 Sodium Potassium Chloride Carbon Dioxide Anion Gap BUN Creatinine Est GFR ( Amer) Est GFR (Non-Af Amer) Glucose Calcium Total Bilirubin AST ALT Alkaline Phosphatase Total Protein Albumin TSH Free T4 Free T3 pg/mL 04/24/18 15:10 Clean Catch Midstream Urine Culture - Final Klebsiella Pneumoniae 04/24/18 13:19 Blood Blood Culture - Final Streptococcus Sanguinis 04/24/18 04/24/18 04/25/18 13:19 15:45 04:27 Creatine Kinase 121 CK-MB (CK-2) Troponin I 0.121 0.152 NT-Pro-B Natriuret Pep [id number] H 04/25/18 04/25/18 04/25/18 04:27 10:27 10:27 Creatine Kinase 124 CK-MB (CK-2) 0.77 0.89 Troponin I 0.093 0.070 NT-Pro-B Natriuret Pep 04/25/18 04/25/18 04/26/18 16:15 16:15 06:32 Creatine Kinase 106 95 CK-MB (CK-2) 0.99 Troponin I 0.050 NT-Pro-B Natriuret Pep 04/26/18 06:32 Creatine Kinase CK-MB (CK-2) 1.23 Troponin I 0.060 NT-Pro-B Natriuret Pep Impressions: Chest X-Ray 04/24/18 11:47 IMPRESSION: Cardiomegaly without acute abnormality of the lungs. No focal airspace opacity. Abdomen/Pelvis CT 04/24/18 17:56 IMPRESSION: No acute findings in the abdomen or pelvis. There are some very small renal vascular calcifications. Assessment & Plan - Diagnosis (1) Acute pyelonephritis Is this a current diagnosis for this admission?: Yes Plan: Patient is primarily presenting with fever, chills, lower urinary tract symptoms, leukocytosis and pyuria. She responded well to antibiotics within 24 h rs. Continue Rocephin. Urine culture grew Klebsiella. Ruling out infective endocarditis (see #2.). (2) Sepsis Is this a current diagnosis for this admission?: Yes Plan: Patient did present with fever, tachycardia, leukocytosis, and elevated liver enzymes. Possible pyelonephritis but will rule out endocarditis. Blood culture grew S.sanguis (viridans group) 1/2. Will order a screening TTE. Repeat blood culture pending. Appreciate cardiology and nephrology input. Will further discuss with ID. (3) Elevated troponin Is this a current diagnosis for this admission?: Yes Plan: Patient denies chest pain or SOB. She is saturating well on room air. Troponin was somehow checked in the ER. Elevated troponin could be from demand ischemia in the setting of her renal failure, elevated blood pressure and known history of CHF and mitral valvulopathy. No ischemic changes on EKG. Cardio has evaluated patient as well. (4) History of mitral valve replacement with mechanical valve Is this a current diagnosis for this admission?: Yes Plan: Continue coumadin. (5) Hypertension Is this a current diagnosis for this admission?: Yes Plan: Continue PO hydralazine. Will resume PO labetalol today. (6) Insulin dependent diabetes mellitus Is this a current diagnosis for this admission?: Yes Plan: Continue Lantus 18 u HS and and SSI. (7) Renal failure Is this a current diagnosis for this admission?: Yes Plan: Improving. Possibly prerenal from poor oral intake vs septic ATN on top of CKD. Creatinine has trended down to 1.5. Nephrology has also evaluated patient. (8) Elevated liver enzymes Is this a current diagnosis for this admission?: Yes Plan: Improving. Possible related to sepsis. Hepatitis panel negative. - Time Time Spent with patient: 25-34 minutes
--- NOTE | 2018-04-27 14:44 | Progress Note ---
Provider Note Provider Note: ID Consult Note Asked to review patient's chart by Dr Lyon and spoke with him briefly via telephone. Pt not seen or examined. Reviewed VS, imaging reports, provider reports and labs. Ms Perea is a 77 year old woman with PMH including CHF, valvular heart disease s/p mitral valve replacement, s/p PPM, DM, CKD, AF and chronic anticoagulation who presented with 2 days of generalized malaise, multiple joint pains, fever, chills, anorexia, and difficulty urinating. Pt indicated having some discomfort in the suprapubic area of her abdomen and minimal L flank pain but has since denied the latter. Pt had fever 100.6 F on presentation and click of prosthetic mitral valve on exam. Initial labs revealed mildly elevated WBC count 11.2, slightly low platelets 105, elevated transaminases and creatinine. U/A revealed pyuria. UCx grew 40-50k cfu Klebsiella pneumoniae. Blood culture on presentation 04/24/18 showed growth of Streptococcus sanguinis from one set. The other set showed no growth. CT abdomen and pelvis without contrast on 04/24/18 did not reveal significant abnormalities, and CXR was without acute abnormality of the lungs. Impression/Recommendations Ultimately, it is possible that pyelonephritis may be the best explanation for the patient's clinical presentation, but lack of urinary urgency, dysuria and less than a significant amount of bacteria cultured from her urine cast some doubt here. A competing explanation for her laboratory abnormalities and constitutional symptoms would be infective endocarditis, although it also does not perfectly account for her presentation either. Streptococcus sanguinis is a viridans group strep species, which can be a cause of transient bacteremia or could potentially also cause infective endocarditis. Two of 4 blood culture bottles grew this organism, which is not enough evidence of a sustained/continuous bacteremia to provide convincing evidence of an endovascular source, but it is concerning enough in the setting of fever and a known predisposing cardiac condition that the patient would be an appropriate candidate for further evaluation with a EFREN. With PPM and a mechanical valve, unfortunately a surface/transthoracic echocardiogram is not likely to be sufficient. Sammy Hirsch MD [facility] Infectious Diseases pager [phone]
[2018-04-27] MEDS ORDERED: (PENDING PHARMACY ID) (Labetalol Hcl [Trandate] 100 MG) PO SCH (18:00)
[2018-04-27] MEDS: LABETALOL HCL 200 MG TABLET PO SCH (21:35)
[2018-04-27] MEDS: WARFARIN SODIUM 3 MG TABLET PO SCH (21:36)
[2018-04-27] MEDS: INSULIN GLARGINE,HUM.REC.ANLOG 300 UNIT/3 ML INSULN.PEN SUBCUT SCH (21:37)
[2018-04-27] MEDS: ASPIRIN 81 MG TABLET, CHEWABLE PO SCH (21:37)
--- NOTE | 2018-04-27 21:43 | Progress Note ---
Provider Note Provider Note: CARDIOLOGY PROGRESS NOTE by Dr. Jaclyn Sharma on 04/27/2018. SUBJECTIVE: The patient denies any chest pain or discomfort. There is no shortness of breath. There is no PND orthopnea. There is no TIA CVA symptoms. There is no bleeding on Coumadin. There is no leg edema. On further questioning the patient does not really have a diagnosis of COPD. She states if she walks a long distance she gets short of breath and she takes the Advair Diskus and then after sometimes she gets better. My opinion is that the patient rest has more to do with the elevation of her dyspnea on exertion than Advair Diskus. She denies any wheezing at any time. The patient's blood cultures positive for Streptococcus sanguinous and hence need to rule out septic or with a dense endocarditis. Dr. Solomon spoke to the infectious disease environment, and they recommend a EFREN. The patient's urine culture is growing Klebsiella pne umonia. The patient is on antibiotics. PHYSICAL EXAM: The patient is mildly obese. She is well-groomed. She is in no acute distress. Selected Entries 04/27/18 12:19 Temperature 98.7 F Temperature Oral Source Pulse Rate 81 Blood Pressure 156/62 H Blood Pressure 93 Mean BP Location Left Arm BP Position Sitting O2 Sat by Pulse 100 Oximetry Oxygen Delivery Room Air Method HEAD: Is atraumatic normocephalic. EYES: Pupils are equal round regular reactive to light accommodation. Extraocular movements are normal. There is no clinical pallor. There is no scleral icterus. EARS: Tympanic membranes are intact. External auditory canals are clear. NOSE: Nasal mucous membranes are moist. There is no inflammation of the nasal mucous membrane. There is no d eviated nasal septum. MOUTH: Mucous membranes of the mouth are moist. Tongue is moist. There is no ulcers. There is no bleeding of the gums. THROAT: There is no redness of the oropharynx. There is no exudates. SKIN: There is no petechia or ecchymosis. There is no skin lesions or skin rashes. NECK: Is supple. There is no JVD. Carotids are equal there is no bruits. There is no lymphadenopathy. There is no goiter. Trachea central. There is no accessory muscle respiration use. LUNGS: Is clear to auscultation percussion, without any rhonchi rales or wheezing. There is no chest wall tenderness. HEART: S1-S2 is heard. There is no S3 gallop there is no S4 gallop. There is a crisp click of the prosthetic mitral valve heard. There is no mitral regurgitation. There is no aortic stenosis or aortic regurgitation murmur. There is no rub. ABDOMEN: Is soft. There is nontender. There is no hepatosplenomegaly. Bowel sounds are well heard. EXTREMITIES: Femorals are slightly diminished. There is no femoral bruits. Leg pulses are well felt. There is no pedal edema. There is no DVT or cellulitis. There is no calf tenderness. There is no cyanosis or clubbing. BRANCH OPERATIONS COORDINATOR: Patient is conscious awake alert oriented x3, with subtle right-sided weakness. PSYCHIATRIC: The patient judgment and insight are intact her affect is normal. 04/24/18 04/25/18 04/26/18 13:19 05:00 22:25 WBC RBC Hgb Hct MCV MCH MCHC RDW Plt Count Seg Neutrophils % Lymphocytes % Monocytes % PT INR Sodium Potassium Chloride Carbon Dioxide BUN Creatinine Est GFR ( Amer) Glucose Calcium Total Bilirubin Direct Bilirubin Neonat Total Bilirubin Neonat Direct Bilirubin Neonat Indirect Bili AST ALT Alkaline Phosphatase Total Protein Albumin TSH Free T4 Free T3 pg/mL 2.95 Hepatitis A IgM Ab Negative Hep Bs Antigen Negative Hep B Core IgM Ab Negative Hepatitis C Antibody 0.1 Influenza A (Rapid) NEGATIVE Influenza B (Rapid) NEGATIVE 04/27/18 04/27/18 04/27/18 05:46 05:46 05:46 WBC 5.6 RBC 3.15 L Hgb 9.5 L Hct 28.5 L MCV 91 MCH 30.1 MCHC 33.3 RDW 15.5 H Plt Count 107 L Seg Neutrophils % 67.5 Lymphocytes % 17.4 Monocytes % 12.4 PT INR Sodium 141.9 Potassium 4.3 Chloride 112 H Carbon Dioxide 24 BUN 46 H Creatinine 1.58 H Est GFR ( Amer) 38 L Glucose 139 H Calcium 8.4 Total Bilirubin 0.4 Direct Bilirubin 0.4 Neonat Total Bilirubin Not Reportable Neonat Direct Bilirubin Not Reportable Neonat Indirect Bili Not Reportable AST 67 H ALT 205 H Alkaline Phosphatase 60 Total Protein 5.5 L Albumin 2.8 L TSH 1.88 Free T4 2.19 Free T3 pg/mL Hepatitis A IgM Ab Hep Bs Antigen Hep B Core IgM Ab Hepatitis C Antibody Influenza A (Rapid) Influenza B (Rapid) 04/27/18 05:46 WBC RBC Hgb Hct MCV MCH MCHC RDW Plt Count Seg Neutrophils % Lymphocytes % Monocytes % PT 23.7 H INR 2.01 Sodium Potassium Chloride Carbon Dioxide BUN Creatinine Est GFR ( Amer) Glucose Calcium Total Bilirubin Direct Bilirubin Neonat Total Bilirubin Neonat Direct Bilirubin Neonat Indirect Bili AST ALT Alkaline Phosphatase Total Protein Albumin TSH Free T4 Free T3 pg/mL Hepatitis A IgM Ab Hep Bs Antigen Hep B Core IgM Ab Hepatitis C Antibody Influenza A (Rapid) Influenza B (Rapid) 04/24/18 15:10 Urine Culture - Final Clean Catch Midstream Klebsiella Pneumoniae 04/24/18 13:19 Blood Culture - Final Blood Streptococcus Sanguinis The patient's echocardiogram shows normal left ventricular wall motion and ejection fraction. There seems to be severe pulmonary hypertension. The prosthetic mitral valve seems to be functioning normally. Please see report IMPRESSION/RECOMMENDATION: 1.PYELONEPHRITIS/UTI: Patient improving continue antibiotics. 2. Elevated troponin I: No evidence of non-ST elevation AR. Troponin I elevation is secondary to supply demand mismatch, due to the patient's acute infection, and chronic kidney disease. 3. Status post mitral valve replacement x2. In 1977 the patient had a porcine valve replacement. Subsequently due to restenosis the patient had a [place] metallic mitral valve replacement. Patient on Coumadin. Coumadin is subtherapeutic. We will give a dose of 5000 units of heparin and give an extra dose of Coumadin 5 mg p.o. now continue patient on 3 nightly usual dose of Coumadin. Recheck the patient's PT/INR in the a.m. Note that the patient states that she had no coronary artery disease at the time of mitral valve replacements. 4. Positive blood culture for Streptococcus sanguinous, which is a streptococcal viridans species. ID is recommended that the patient have a EFREN to look for evidence of endocarditis. This will be arranged. The EFREN is to shanna de us as to how long to continue antibiotic therapy. 5. Hypertension: Seems to be slightly elevated. Will increase antihypertensives as needed. 6. Diabetes mellitus. Continue antidiabetic treatment. 7. Chronic kidney disease stage IV: Awaiting nephrology consult. 8. Normal normal left ventricular ejection fraction, 9. Severe pulmonary hypertension with right ventricle systolic pressure of 72 to 77 mmHg by report of echo, done in here today. 11. History of paroxysmal atrial fibrillation: No recurrence. 12. History of permanent pacemaker placement for tachybradycardia syndrome. 13. Old CVA, with residual very minimal right-sided weakness. 14. Abnormal liver function tests. Await full records from [place], to see if the patient does need Advair Diskus, and also if the patient does need Isordil. Medications reviewed. Medications adjusted. Medications added. Management plan discussed with attending physician on the case. Discussed with patient patient's granddaughter. Medical decision making is of moderate to high complexity. 40 minutes spent on the patient more than 50% time spent in direct patient care. We will follow with you.
--- NOTE | 2018-04-27 23:06 | XCELERA REPORT ---
[address] [address] Transthoracic Echocardiogram Report Name: SCOTT FITCH Age: 77 yrs Gender: Female : 1940 Patient Status: Inpatient Patient Location: [address] [place] [address] Study Date: 04/27/2018 03:21 PM Procedure: A two-dimensional transthoracic echocardiogram with color flow and Doppler was performed. Study Quality: Fair. Reason For Study: Bacteremia / Prosthetic MV Replacement. History: Bacteremia / Prosthetic MV Replacement./ Endocarditis. Ordering Physician: ANTHONY MONTES Performed By: Jailene Santos Interpretation Summary STRONGLY RECOMMEND EFREN. The left ventricle is normal in size. There is mild concentric left ventricular hypertrophy. LV EF is 60% to 65% Left ventricular systolic function is normal. Doppler measurements suggest normal left ventricular diastolic function The left ventricular wall motion is normal. There is no thrombus. The right ventricle is not well visualized secondary to technical limitations The right atrium is borderline dilated. The left atrium is mildly dilated. There is no evidence of mitral valve prolapse. There is no vegetation seen on the mitral valve. There is no mitral valve stenosis. There is no mitral regurgitation noted. This is seen to function normally. There is no aortic valvular vegetation. There is no aortic valve stenosis There is no LVOT obstruction. There is aortic sclerosis without aortic stenosis. No aortic regurgitation is present. There is no tricuspid stenosis. There is a severe amount of tricuspid regurgitation There is servere pulmonary hypertension by echo RVSP is 72 to 77 mm of Hg , with RA mean of 5 to 10. There is no pulmonic valvular regurgitation. The aortic root is normal size. The inferior vena cava appeared normal and decreased > 50% with respiration (RAP 5-10 mmHg) There is no pericardial effusion. STRONGLY RECOMMEND EFREN. MMode/2D Measurements & Calculations RVDd: 3.8 cm LVIDd: 3.0 cm FS: 19.7 % Ao root diam: 2.5 cm IVSd: 1.2 cm LVIDs: 2.4 cm EDV(Teich): 36.4 ml Ao root area: 4.9 cm2 LVPWd: 2.1 cm ESV(Teich): 21.2 ml EF(Teich): 41.9 % Doppler Measurements & Calculations MV E max avni: MV V2 max: MV dec slope: Ao V2 max: 180.3 cm/sec 190.3 cm/sec 124.3 cm/sec MV A max avni: MV max P.7 cm/sec2 Ao max P.3 cm/sec 14.5 mmHg MV dec time: 6.2 mmHg MV E/A: 2.1 MV V2 mean: 0.21 sec 113.3 cm/sec MV mean P.0 mmHg MV V2 VTI: 36.5 cm LV V1 max PG: PA V2 max: TR max avni: 2.6 mmHg 88.7 cm/sec 378.0 cm/sec LV V1 max: PA max PG: TR max P.1 mmHg 80.0 cm/sec 3.2 mmHg Left Ventricle The left ventricle is normal in size. There is mild concentric left ventricular hypertrophy. LV EF is 60% to 65%. Left ventricular systolic function is normal. Doppler measurements suggest normal left ventricular diastolic function. The left ventricular wall motion is normal. There is no thrombus. Right Ventricle The right ventricle is not well visualized secondary to technical limitations. Atria The right atrium is borderline dilated. The left atrium is mildly dilated. Mitral Valve There is no evidence of mitral valve prolapse. There is no vegetation seen on the mitral valve. There is no mitral valve stenosis. There is no mitral regurgitation noted. There is a mechanical mitral valve. This is seen to function normally. Aortic Valve There is no aortic valvular vegetation. There is no aortic valve stenosis. There is no LVOT obstruction. There is aortic sclerosis without aortic stenosis. No aortic regurgitation is present. Tricuspid Valve There is no tricuspid valve vegetation. There is no tricuspid stenosis. There is a severe amount of tricuspid regurgitation. There is servere pulmonary hypertension by echo. RVSP is 72 to 77 mm of Hg , with RA mean of 5 to 10. Pulmonic Valve There is no pulmonic valvular stenosis. There is no pulmonic valvular regurgitation. Great Vessels The aortic root is normal size. The inferior vena cava appeared normal and decreased > 50% with respiration (RAP 5-10 mmHg). Effusions There is no pericardial effusion. : ANTHONY MONTES > Jaclyn Zamarripa
[2018-04-28] MEDS: LANSOPRAZOLE 30 MG TAB.RAP.DR PO SCH (05:23)
[2018-04-28] MEDS: LABETALOL HCL 200 MG TABLET PO SCH ×2 (09:39→21:42)
[2018-04-28] MEDS: HYDRALAZINE HCL 25 MG TABLET PO SCH ×2 (09:40→17:16)
[2018-04-28] MEDS: AMIODARONE HCL 200 MG TABLET PO SCH (09:40)
[2018-04-28] MEDS: CEFTRIAXONE 1 GM/D5W RTU 1 GM/50 ML RTUPB IV SCH (09:41)
--- NOTE | 2018-04-28 10:14 | PDOC PROGRESS REPORT ---
Subjective Progress Note for:: 04/28/18 Subjective:: 04/28/2018 this 77-year-old female with history of prosthetic mitral valve replacement admitted with fevers initial blood culture shows strep sanguinus and urine culture shows Klebsiella pneumonia, Dr. Zamarripa is on board under Dr. Hirsch is on board I spoke to Dr. Zamarripa this morning patient is going to [facility] for EFREN tomorrow. Acute events in the last 24 hours. Patient is afebrile. denies any complaints. I spend 15-20 minutes with the patient and t he family explaining the plan of care. Reason For Visit: PYELONEPHRITIS,ANTOLIN ON CKD,ELEVATED TROP Physical Exam Vital Signs: Temp Pulse Resp BP Pulse Ox 98.5 F 88 18 145/63 H 98 04/28/18 07:56 04/28/18 07:56 04/28/18 07:56 04/28/18 07:56 04/28/18 07:56 Intake & Output 04/27/18 04/28/18 04/29/18 06:59 06:59 06:59 Intake Total 405 764 Output Total 200 Balance 405 564 Weight 75.5 kg 75 kg General appearance: PRESENT: no acute distress Head exam: PRESENT: atraumatic Eye exam: PRESENT: PERRLA Mouth exam: PRESENT: moist Neck exam: ABSENT: carotid bruit, JVD, lymphadenopathy, thyromegaly Respiratory exam: PRESENT: decreased breath sounds Cardiovascular exam: PRESENT: systolic murmur Pulses: PRESENT: normal dorsalis pedis pul GI/Abdominal exam: PRESENT: normal bowel sounds, soft. ABSENT: distended, guarding, mass, organolmegaly, rebound, tenderness Neurological exam: PRESENT: alert, awake, oriented to person, oriented to place, oriented to time, oriented to situation, CN II-XII grossly intact. ABSENT: motor sensory deficit Psychiatric exam: PRESENT: appropriate affect, normal mood. ABSENT: homicidal ideation, suicidal ideation Results Laboratory Results: 04/27/18 05:46 04/27/18 05:46 04/24/18 15:10 Clean Catch Midstream Urine Culture - Final Klebsiella Pneumoniae 04/24/18 04/24/18 04/25/18 13:19 15:45 04:27 Creatine Kinase 121 CK-MB (CK-2) Troponin I 0.121 0.152 NT-Pro-B Natriuret Pep 81965 H 04/25/18 04/25/18 04/25/18 04:27 10:27 10:27 Creatine Kinase 124 CK-MB (CK-2) 0.77 0.89 Troponin I 0.093 0.070 NT-Pro-B Natriuret Pep 04/25/18 04/25/18 04/26/18 16:15 16:15 06:32 Creatine Kinase 106 95 CK-MB (CK-2) 0.99 Troponin I 0.050 NT-Pro-B Natriuret Pep 04/26/18 06:32 Creatine Kinase CK-MB (CK-2) 1.23 Troponin I 0.060 NT-Pro-B Natriuret Pep Impressions: Chest X-Ray 04/24/18 11:47 IMPRESSION: Cardiomegaly without acute abnormality of the lungs. No focal airspace opacity. Abdomen/Pelvis CT 04/24/18 17:56 IMPRESSION: No acute findings in the abdomen or pelvis. There are some very small renal vascular calcifications. Assessment & Plan - Diagnosis (1) Acute pyelonephritis Is this a current diagnosis for this admission?: Yes Plan: Patient is primarily presenting with fever, chills, lower urinary tract sympt oms, leukocytosis and pyuria. She responded well to antibiotics within 24 hrs. Continue Rocephin. Urine culture grew Klebsiella. Ruling out infective endocarditis (see #2.). 04/28/2018-patient is on IV ceftriaxone 1 g daily for Klebsiella and UTI. Pressure today is 97.1. Patient's WBC count is 5.6 Patient is going to [facility] for a EFREN tomorrow to rule out endocarditis. (2) Sepsis Is this a current diagnosis for this admission?: Yes Plan: 04/28/2018-patient is admitted with sepsis with elevated WBC fever chills blood cultures are positive and also LFTs are elevated. Urine culture showing Klebsiella and blood culture showing strep sanguis she is going to [facility] for EFREN to rule out endocarditis. Repeat blood culture is negative. (3) Elevated troponin Is this a current diagnosis for this admission?: Yes Plan: Patient denies chest pain or SOB. She is saturating well on room air. Troponin was somehow checked in the ER. Elevated troponin could be from demand ischemia in the setting of her renal failure, elevated blood pressure and known history of CHF and mitral valvulopathy. No ischemic changes on EKG. Cardio has evaluated patient as well. 04/28/2018-patient denies any chest pain and shortness of breath. Pulse ox is 96% on room air. Initial elevated troponin may be secondary to sepsis, ANTOLIN, elevated blood pressure. (4) History of mitral valve replacement with mechanical valve Is this a current diagnosis for this admission?: Yes Plan: 04/28/2018-patient has history of mitral valve replacement with mechanical valve patient is on Coumadin INR is 2.01 today. She is on Coumadin 5 mg p.o. nightly. I am going to check INR on daily basis. (5) Hypertension Is this a current diagnosis for this admission?: Yes Plan: 04/28/2018-blood pressure today is 143/63. Blood pressure is relatively controlled. Patient is on p.o. hydralazine 25 mg po bid and p.o. labetalol.100mg po bid. patient is also on amiodarone 100 mg p.o. daily. (6) Renal failure Is this a current diagnosis for this admission?: Yes Plan: Improving. Possibly prerenal from poor oral intake vs septic ATN on top of CKD. Creatinine has trended down to 1.5. Nephrology has also evaluated patient. 04/28/2018-patient's admission creatinine is 1.81 peaked to 2.29 and yesterday creatinine is 1.58 AKA secondary to probably septic ATN resolving. (7) Insulin dependent diabetes mellitus Is this a current diagnosis for this admission?: Yes Plan: 04/28/2018-patient blood sugar is 112 this morning she is on insulin sliding scale and Lantus 18 units at bedtime. plan is to continue the present management I am going to check her hemoglobin A1c. (8) Elevated liver enzymes Is this a current diagnosis for this admission?: Yes Plan: Improving. Possible related to sepsis. Hepatitis panel negative. 04/28/2018-elevated LFTs probably secondary to sepsis improving. - Time Time Spent with patient: 15-24 minutes Medications reviewed and adjusted accordingly: Yes Anticipated discharge: Home
[2018-04-28] MEDS ORDERED: NITROGLYCERIN 0.4 MG/TAB 25 TAB/BOTTLE SL PRN (10:15)
[2018-04-28] MEDS: FLUTICASONE/SALMETEROL DISKUS 250-50 MCG/DOSE IH SCH ×2 (12:27→21:42)
[2018-04-28 13:52] LABS: INTERNATIONAL RATION (INR) 2.46; PROTHROMBIN TIME 27.8 SEC (11.4-15.4)
[2018-04-28] MEDS: INSULIN LISPRO 100 UNIT/ML 3 ML VIAL SUBCUT PRN (18:05)
[2018-04-28] MEDS: ASPIRIN 81 MG TABLET, CHEWABLE PO SCH (21:04)
[2018-04-28] MEDS: INSULIN GLARGINE,HUM.REC.ANLOG 300 UNIT/3 ML INSULN.PEN SUBCUT SCH (21:34)
[2018-04-28] MEDS: WARFARIN SODIUM 3 MG TABLET PO SCH (21:40)
[2018-04-28] MEDS ORDERED: ISOSORBIDE DINITRATE 10 MG TABLET PO SCH (22:00)
[2018-04-29] MEDS: LANSOPRAZOLE 30 MG TAB.RAP.DR PO SCH (05:01)
[2018-04-29 05:37] VITALS: BP 146/60
[2018-04-29 07:48] LABS: ABSOLUTE BASOPHILS # (AUTO) 0.1 10^3/uL (0.0-0.2); ABSOLUTE EOSINOPHILS # (AUTO) 0.1 10^3/uL (0.0-0.6); ABSOLUTE LYMPHOCYTES (AUTO) 1.1 10^3/uL (0.5-4.7); ABSOLUTE MONOCYTES (AUTO) 0.6 10^3/uL (0.1-1.4); ABSOLUTE NEUT (AUTO) 4.9 10^3/uL (1.7-8.2); BASOPHILS % (AUTO) 0.8 % (0-2); EOSINOPHILS % (AUTO) 1.9 % (0-6); HEMATOCRIT 31.6 % (36.0-47.0); HEMOGLOBIN 10.5 g/dL (12.0-15.5); LYMPHOCYTES % (AUTO) 16.2 % (13-45); MEAN CORPUSCULAR HEMOGLOBIN 29.9 pg (27.0-33.4); MEAN CORPUSCULAR HGB CONC 33.3 g/dL (32.0-36.0); MEAN CORPUSCULAR VOLUME 90 fl (80-97); MONOCYTES % (AUTO) 8.8 % (3-13); PLATELET COUNT 151 10^3/uL (150-450); RED BLOOD COUNT 3.51 10^6/uL (3.72-5.28); RED CELL DISTRIBUTION WIDTH 15.5 % (11.5-14.0); SEGMENTED NEUTROPHILS % (AUTO) 72.3 % (42-78); TOTAL CELLS COUNTED % (AUTO) 100 %; WHITE BLOOD COUNT 6.8 10^3/uL (4.0-10.5)
[2018-04-29 07:56] LABS: INTERNATIONAL RATION (INR) 2.37
[2018-04-29 08:18] LABS: ALANINE AMINOTRANSFERASE 122 U/L (9-52); ALBUMIN 3.3 g/dL (3.5-5.0); ALKALINE PHOSPHATASE 77 U/L (38-126); ASPARTATE AMINO TRANSFERASE 33 U/L (14-36); BILIRUBIN,DIRECT 0.3 mg/dL (0.0-0.4); BILIRUBIN,TOTAL 0.6 mg/dL (0.2-1.3); TOTAL PROTEIN 6.2 g/dL (6.3-8.2)
--- NOTE | 2018-04-29 10:12 | PDOC TRANSFER SUMMARY ---
General Admission Date/PCP: 04/24/18 18:07 Transfer Date: 04/29/18 Accepting Facility: [facility]END[facility] SALE TO [facility] Resuscitation Status: Full Code - Transfer Diagnosis (1) Acute pyelonephritis Is this a current diagnosis for this admission?: Yes (2) Sepsis Is this a current diagnosis for this admission?: Yes (3) Elevated troponin Is this a current diagnosis for this admission?: Yes (4) History of mitral valve replacement with mechanical valve Is this a current diagnosis for this admission?: Yes (5) Hypertension Is this a current diagnosis for this admission?: Yes (6) Renal failure Is this a current diagnosis for this admission?: Yes (7) Insulin dependent diabetes mellitus Is this a current diagnosis for this admission?: Yes (8) Elevated liver enzymes Is this a current diagnosis for this admission?: Yes - Transfer Medications Home Medications: Amiodarone HCl [Cordarone 200 mg Tablet] 200 mg PO DAILY 04/24/18 Atorvastatin Calcium [Lipitor 20 mg Tablet] 20 mg PO DAILY 04/24/18 Bumetanide [Bumex 1 mg Tablet] 1 mg PO QHS 04/24/18 Cyclobenzaprine HCl [Flexeril 5 mg Tablet] 5 mg PO HSP PRN 04/24/18 Escitalopram Oxalate [Lexapro 10 mg Tablet] 10 mg PO DAILY 04/24/18 Fluticasone/Salmeterol [Advair 250-50 Diskus 14 Dose/Diskus] 1 puff IH Q12 04/24/18 Folic Acid [Folvite 1 mg Tablet] 400 mcg PO QAM 04/24/18 Gabapentin [Neurontin 100 mg Capsule] 100 mg PO QHS 04/24/18 Hydralazine HCl [Apresoline 25 mg Tablet] 25 mg PO BID 04/24/18 Hydrocodone/Acetaminophen [[place] 5-325 mg Tablet] 1 tab PO Q6HP PRN 04/24/18 Hydroxyzine HCl [Atarax 25 mg Tablet] 25 mg PO DAILYP PRN 04/24/18 Insulin Aspart [Novolog Flexpen] 4 units SQ AC 04/24/18 Insulin Glargine,Hum.rec.anlog [Lantus Insulin 100 Unit/mL] 18 units SQ QHS 04/24/18 Ipratropium [place] [Atrovent 0.06% Nasal [place]] 2 spray NASL TID 04/24/18 Isosorbide Dinitrate [Isordil Titradose 10 mg Tablet] 10 mg PO QHS 04/24/18 Labetalol HCl [Trandate] 100 mg PO BID 04/24/18 Nitroglycerin [Nitrostat 0.4 mg (1/150 Gr) Tabs 25/Bottle] 1 tab SL Q5MP PRN 04/24/18 Pantoprazole Sodium [Protonix] 40 mg PO DAILY 04/24/18 Potassium Chloride [Klor-Con 10 Meq Capsule ER] 10 meq PO DAILY 04/24/18 Warfarin Sodium [Coumadin 3 mg Tablet] 3 mg PO QHS 04/24/18 Transfer Medications: Current Medications Acetaminophen (Tylenol 325 Mg Tablet) 650 mg PO Q6H PRN PRN Reason: FOR PAIN Stop: 05/24/18 18:29 Amiodarone HCl (Cordarone 200 Mg Tablet) 100 mg PO DAILY [facility] Stop: 05/27/18 09:59 Last Admin: 04/28/18 09:40 Dose: 100 mg Documented by: Aspirin (Aspirin 81 Mg Chewable Tablet) 81 mg PO QHS [facility] Stop: 05/24/18 21:59 Last Admin: 04/28/18 21:04 Dose: Not Given Documented by: Bumetanide (Bumex 1 Mg Tablet) 1 mg PO DAILY [facility] Stop: 05/24/18 19:14 Last Admin: 04/26/18 10:28 Dose: Not Given Documented by: Dextrose (Dextrose Inj 50% Syringe (25 Gm/50 Ml)) 12.5 gm IV PRN PRN; Protocol PRN Reason: FOR BG 50-69 IN ALERT PATIENT Stop: 05/24/18 18:09 Dextrose (Dextrose Inj 50% Syringe (25 Gm/50 Ml)) 25 gm IV PRN PRN; Protocol PRN Reason: PER PROTOCOL Stop: 05/24/18 18:09 Glucagon (Glucagen Inj 1 Mg Vial) 1 mg IM PRN PRN; Protocol PRN Reason: Evaluate for BG < 70 Stop: 05/24/18 18:09 Glucose (Glutose 40% Gel 15 Gm Tube) 15 gm PO PRN PRN; Protocol PRN Reason: FOR BG 50-69 IN ALERT PATIENT Stop: 05/24/18 18:09 Glucose (Glutose 40% Gel 15 Gm Tube) 30 gm PO PRN PRN; Protocol PRN Reason: FOR BG < 50 IN ALERT PATIENT Stop: 05/24/18 18:09 Hydralazine HCl (Apresoline Inj/Pf 20 Mg/1 Ml Sdv) 10 mg IV Q4HP PRN PRN Reason: for SBP>160 or DBP>100 Stop: 05/24/18 18:11 Hydralazine HCl (Apresoline 25 Mg Tablet) 25 mg PO BID [facility] Stop: 05/26/18 17:59 Last Admin: 04/28/18 17:16 Dose: 25 mg Documented by: Ceftriaxone Sodium/Dextrose (Rocephin Rtu 1 Gm/D5w 50 Ml Premix) 1 gm in 50 mls @ 100 mls/hr IV DAILY [facility] Stop: 05/02/18 09:59 Last Infusion: 04/28/18 11:00 Dose: Infused Documented by: Insulin Glargine (Lantus Insulin Inj 300 Unit/3 Ml Pen) 18 unit SUBCUT QHS [facility] Stop: 05/25/18 21:59 Last Admin: 04/28/18 21:34 Dose: Not Given Documented by: Insulin Human Lispro (Humalog Insulin 100 Unit/1 Ml 3 Ml Vial) 0 - 12 unit SUBCUT ACHSP PRN; Protocol PRN Reason: PER PROTOCOL Stop: 05/24/18 18:09 Last Admin: 04/28/18 18:05 Dose: 2 unit Documented by: Isosorbide Dinitrate (Isordil Titradose 10 Mg Tablet) 10 mg PO QHS [facility] Stop: 05/28/18 21:59 Last Admin: 04/28/18 21:42 Dose: 10 mg Documented by: Labetalol HCl (Normodyne 200 Mg Tablet) 100 mg PO Q12 [facility] Stop: 05/27/18 21:59 Last Admin: 04/28/18 21:42 Dose: 100 mg Documented by: Lansoprazole (Prevacid 30 Mg Odt Tablet) 30 mg PO Q6AM [facility] Stop: 05/26/18 05:59 Last Admin: 04/29/18 05:01 Dose: Not Given Documented by: Nitroglycerin (Nitrostat 0.4 Mg (1/150 Gr) Tabs 25/Bottle) 1 tab SL Q5MP PRN PRN Reason: CHEST PAIN Stop: 05/28/18 10:14 Fluticasone/Salmeterol (Advair 250-50 Diskus 14 Dose/Diskus) 1 inh IH Q12 [facility] Stop: 05/28/18 11:59 Last Admin: 04/28/18 21:42 Dose: Not Given Documented by: Warfarin Sodium (Coumadin 3 Mg Tablet) 5 mg PO QHS [facility] Stop: 05/27/18 21:59 Last Admin: 04/28/18 21:40 Dose: 5 mg Documented by: - Allergies Allergies/Adverse Reactions: codeine Allergy (Verified 04/24/18 10:52) Penicillins Allergy (Verified 04/24/18 10:52) Hospital Course Hospital Course: 04/29/20189063-48-npyg-old female with history of congestive heart failure, paroxysmal atrial fibrillation, history of mitral valve repair twice initially porcine and next one is mechanical wall currently on Coumadin, insulin-dependent diabetes mellitus, chronic kidney disease, history of pacemaker placement, history of small bowel obstruction with lysis of adhesions in 2004 presented with complaints of fever mobilize and urinary tract symptoms. In the emergency room found to have a leukocytosis and pyuria consistent with UTI. Initial troponin was slightly elevated at 0.15. Creatinine at the time of admission is 1.8. EKG was showing no acute ischemic changes at the time of admission. Initially family wants the patient to be transferred to the [facility] or widened because of the lack of bed availability the family agreed to keep the patient here in the hospital for further management. Initial admitting diagnosis acute pyelonephritis, elevated troponin. Because of the history of fever and history of mitral valve replacement patient was closely monitored by the ID, cardiology team also initial blood cultures came back positive for streptooccus sanguinis and urine culture positive for Klebsiella pneumonia follow-up the cultures are negative for growth after [address] Zamarripa recommended EFREN because of history of prosthetic wall on are more on the examination we do not have the prior records because the patient came from [place]. Patient was on IV ceftriaxone 1 g daily. Patient is afebrile for the last [address] Robert lizarraga got in touch with cardiology team in [facility] for the initial plan was that patient go there for EFREN and come back here again if the EFREN is negative. But today I was notified that our is planning to admit the patient to stay in their facility for further management.. we are in complete agreement with that. No complications during this hospital stay. Patient's WBC and LFTs are initially elevated to gradually came down . Since admission creatinine was 1.81 peaked to 2.29 came down to 1.58 on 04/27/2017. Patient has history of CKD stage III and acute kidney failure is resolving. Physical Exam Vital Signs: Temp Pulse Resp BP Pulse Ox 98.7 F 81 17 146/60 H 93 04/29/18 05:27 04/29/18 07:00 04/29/18 05:27 04/29/18 05:27 04/29/18 05:27 Intake & Output 04/28/18 04/29/18 04/30/18 06:59 06:59 06:59 Intake Total 764 1425 Output Total 200 200 Balance 564 1225 Weight 75 kg 70.8 kg General appearance: PRESENT: no acute distress Head exam: PRESENT: atraumatic Eye exam: PRESENT: PERRLA Mouth exam: PRESENT: moist Neck exam: ABSENT: carotid bruit, JVD, lymphadenopathy, thyromegaly Respiratory exam: PRESENT: decreased breath sounds Cardiovascular exam: PRESENT: irregular rhythm, systolic murmur, tachycardia GI/Abdominal exam: PRESENT: normal bowel sounds, soft. ABSENT: distended, guarding, mass, organolmegaly, rebound, tenderness Extremities exam: PRESENT: full ROM. ABSENT: calf tenderness, clubbing, pedal edema Neurological exam: PRESENT: alert, awake, oriented to person, oriented to place, oriented to time, oriented to situation, CN II-XII grossly intact. ABSENT: motor sensory deficit Psychiatric exam: PRESENT: appropriate affect, normal mood. ABSENT: homicidal ideation, suicidal ideation Results Laboratory Results: 04/29/18 07:33 04/27/18 05:46 04/29/18 04/29/18 07:33 07:33 WBC 6.8 RBC 3.51 L Hgb 10.5 L Hct 31.6 L MCV 90 MCH 29.9 MCHC 33.3 RDW 15.5 H Plt Count 151 Seg Neutrophils % 72.3 Lymphocytes % 16.2 Monocytes % 8.8 Eosinophils % 1.9 Basophils % 0.8 Absolute Neutrophils 4.9 Absolute Lymphocytes 1.1 Absolute Monocytes 0.6 Absolute Eosinophils 0.1 Absolute Basophils 0.1 Magnesium 2.1 Total Bilirubin 0.6 AST 33 ALT 122 H Alkaline Phosphatase 77 Total Protein 6.2 L Albumin 3.3 L 04/24/18 13:19 Blood Blood Culture - Final Streptococcus Sanguinis 04/24/18 04/24/18 04/25/18 13:19 15:45 04:27 Creatine Kinase 121 CK-MB (CK-2) Troponin I 0.121 0.152 NT-Pro-B Natriuret Pep 27531 H 04/25/18 04/25/18 04/25/18 04:27 10:27 10:27 Creatine Kinase 124 CK-MB (CK-2) 0.77 0.89 Troponin I 0.093 0.070 NT-Pro-B Natriuret Pep 04/25/18 04/25/18 04/26/18 16:15 16:15 06:32 Creatine Kinase 106 95 CK-MB (CK-2) 0.99 Troponin I 0.050 NT-Pro-B Natriuret Pep 04/26/18 06:32 Creatine Kinase CK-MB (CK-2) 1.23 Troponin I 0.060 NT-Pro-B Natriuret Pep Impressions: Chest X-Ray 04/24/18 11:47 IMPRESSION: Cardiomegaly without acute abnormality of the lungs. No focal airspace opacity. Abdomen/Pelvis CT 04/24/18 17:56 IMPRESSION: No acute findings in the abdomen or pelvis. There are some very small renal vascular calcifications. Plan Discharge Plan: Patient was transferred to [facility]. Time Spent: Greater than 30 Minutes
[2018-04-29] MEDS ORDERED: ATORVASTATIN CALCIUM 20 MG TABLET PO SCH (22:00)
== END 2018-04-29 10:42 | disposition short-term general hospital (02) | DRG 872 ==
LOC: ER 10:22 → EH 18:07 → 3S 21:33
PROVIDERS: ADMIT Internal Medicine; ATTEND Internal Medicine
DX: A41.9 Sepsis, unspecified organism (principal); N10 Acute pyelonephritis; I13.0 Hypertensive heart and chronic kidney disease with heart failure and stage 1 through stage 4 chronic kidney disease, or unspecified chronic kidney disease; I69.351 Hemiplegia and hemiparesis following cerebral infarction affecting right dominant side; N17.9 Acute kidney failure, unspecified; N18.4 Chronic kidney disease, stage 4 (severe); I50.9 Heart failure, unspecified; I48.0 Paroxysmal atrial fibrillation; E11.22 Type 2 diabetes mellitus with diabetic chronic kidney disease; I27.20 Pulmonary hypertension, unspecified; R63.0 Anorexia; E66.9 Obesity, unspecified; B96.1 Klebsiella pneumoniae [K. pneumoniae] as the cause of diseases classified elsewhere; B95.5 Unspecified streptococcus as the cause of diseases classified elsewhere; K21.9 Gastro-esophageal reflux disease without esophagitis; E78.5 Hyperlipidemia, unspecified; R79.89 Other specified abnormal findings of blood chemistry; Z95.3 Presence of xenogenic heart valve; Z79.01 Long term (current) use of anticoagulants; Z79.4 Long term (current) use of insulin; Z95.0 Presence of cardiac pacemaker; Z95.820 Peripheral vascular angioplasty status with implants and grafts; Z68.32 Body mass index [BMI] 32.0-32.9, adult; Z87.891 Personal history of nicotine dependence; Z82.49 Family history of ischemic heart disease and other diseases of the circulatory system; Z79.82 Long term (current) use of aspirin; Z88.0 Allergy status to penicillin
CPT/HCPCS: 36415; 71046; 74176; 80048; 80053; 80074; 80076; 81001; 82550; 82553; 82803; 82962; 83036; 83605; 83690; 83735; 83880; 84439; 84443; 84481; 84484; 85025; 85610; 87040; 87077; 87086; 87088; 87186; 87804; 93005; 93010; 93306; 96365; 96366; 96375; 99285; J0696; J1644; J1815; J2405; J3490

== ENCOUNTER → 2018-05-21 | Outpatient (CLI) | payer MEDICARE ==
[2018-05-21 12:34] LABS: INTERNATIONAL RATION (INR) 3.05
[2018-05-21 12:44] LABS: ABSOLUTE EOSINOPHILS # (AUTO) 0.1 10^3/uL (0.0-0.6); ABSOLUTE LYMPHOCYTES (AUTO) 0.7 10^3/uL (0.5-4.7); ABSOLUTE MONOCYTES (AUTO) 0.3 10^3/uL (0.1-1.4); ABSOLUTE NEUT (AUTO) 4.5 10^3/uL (1.7-8.2); BASOPHILS % (AUTO) 0.7 % (0-2); EOSINOPHILS % (AUTO) 1.4 % (0-6); HEMATOCRIT 30.4 % (36.0-47.0); HEMOGLOBIN 9.9 g/dL (12.0-15.5); LYMPHOCYTES % (AUTO) 12.8 % (13-45); MEAN CORPUSCULAR HEMOGLOBIN 29.9 pg (27.0-33.4); MEAN CORPUSCULAR HGB CONC 32.6 g/dL (32.0-36.0); MEAN CORPUSCULAR VOLUME 92 fl (80-97); PLATELET COUNT 104 10^3/uL (150-450); RED BLOOD COUNT 3.31 10^6/uL (3.72-5.28); RED CELL DISTRIBUTION WIDTH 17.2 % (11.5-14.0); SEGMENTED NEUTROPHILS % (AUTO) 80.1 % (42-78); TOTAL CELLS COUNTED % (AUTO) 100 %; WHITE BLOOD COUNT 5.7 10^3/uL (4.0-10.5)
== END ==
LOC: OD 11:51
PROVIDERS: ATTEND Specialist
DX: R04.0 Epistaxis (principal); Z79.01 Long term (current) use of anticoagulants; Z95.2 Presence of prosthetic heart valve
CPT/HCPCS: 36415; 85025; 85610

== ENCOUNTER → 2018-06-09 | Outpatient (CLI) | payer MEDICARE ==
[2018-06-09 14:06] LABS: INTERNATIONAL RATION (INR) 1.43; PROTHROMBIN TIME 18.2 SEC (11.4-15.4)
== END ==
LOC: OD 13:01
PROVIDERS: ATTEND Family Medicine
DX: Z51.81 Encounter for therapeutic drug level monitoring (principal); Z79.01 Long term (current) use of anticoagulants; Z95.2 Presence of prosthetic heart valve
CPT/HCPCS: 36415; 85610

== ENCOUNTER 2018-06-19 10:36 | Emergency (ER) | payer MEDICARE ==
--- NOTE | 2018-06-19 11:10 | ER Document Report ---
ED Medical Screen (RME) - General Chief Complaint: Abnormal Lab Results Stated Complaint: FLU SYMPTOMS Time Seen by Provider: 06/19/18 11:06 Primary Care Provider: ANNETTE AMARAL MD [Primary Care Provider] - Follow up as needed Notes: Patient says that she has had a cough and chest congestion going on for couple weeks. Is getting worse this week. Running a low-grade fever. Called her doctor this morning who advised her to come to the emergency department. Patient is a dialysis patient on Friday, Friday, and Friday dialysis. She is scheduled for 2:30 PM dialysis today. She is on Coumadin and had an INR checked on Friday and it supposedly is very high. TRAVEL OUTSIDE OF THE [place] IN LAST 30 DAYS: No - Related Data Allergies/Adverse Reactions: codeine Allergy (Verified 06/19/18 10:38) Penicillins Allergy (Verified 06/19/18 10:38) Past Medical History - Past Medical History Cardiac Medical History: Reports: Hx Congestive Heart Failure, Hx Hypercholesterolemia, Hx Hypertension Neurological Medical History: Reports: Hx Cerebrovascular Accident - Right-sided weakness Endocrine Medical History: Reports: Hx Diabetes Mellitus Type 2 Renal/ Medical History: Denies: Hx Peritoneal Dialysis GI Medical History: Reports: Hx Gastroesophageal Reflux Disease Psychiatric Medical History: Denies: Hx Depression Past Surgical History: Reports: Hx Bowel Surgery, Hx Open Heart Surgery - x2- replaced mitral valve, Hx Valve Replacement Physical Exam - Vital signs Vitals: Temp Pulse Resp BP Pulse Ox 99.3 F 86 22 H 140/65 H 97 06/19/18 10:42 06/19/18 10:42 06/19/18 10:42 06/19/18 10:42 06/19/18 10:42 Course - Vital Signs Vital signs: Temp Pulse Resp BP Pulse Ox 99.3 F 86 22 H 140/65 H 97 06/19/18 10:42 06/19/18 10:42 06/19/18 10:42 06/19/18 10:42 06/19/18 10:42 Doctor's Discharge - Discharge Referrals: ANNETTE AMARAL MD [Primary Care Provider] - Follow up as needed
[2018-06-19 12:11] LABS: ABSOLUTE LYMPHOCYTES (AUTO) 0.9 10^3/uL (0.5-4.7); ABSOLUTE MONOCYTES (AUTO) 0.4 10^3/uL (0.1-1.4); ABSOLUTE NEUT (AUTO) 2.4 10^3/uL (1.7-8.2); BASOPHILS % (AUTO) 0.6 % (0-2); HEMATOCRIT 31.4 % (36.0-47.0); HEMOGLOBIN 10.3 g/dL (12.0-15.5); LYMPHOCYTES % (AUTO) 23.8 % (13-45); MEAN CORPUSCULAR HEMOGLOBIN 30.1 pg (27.0-33.4); MEAN CORPUSCULAR HGB CONC 32.9 g/dL (32.0-36.0); MEAN CORPUSCULAR VOLUME 91 fl (80-97); MONOCYTES % (AUTO) 10.3 % (3-13); PLATELET COUNT 137 10^3/uL (150-450); RED BLOOD COUNT 3.43 10^6/uL (3.72-5.28); RED CELL DISTRIBUTION WIDTH 17.2 % (11.5-14.0); SEGMENTED NEUTROPHILS % (AUTO) 65.3 % (42-78); TOTAL CELLS COUNTED % (AUTO) 100 %; WHITE BLOOD COUNT 3.7 10^3/uL (4.0-10.5)
[2018-06-19 12:14] LABS: INTERNATIONAL RATION (INR) 1.63; PROTHROMBIN TIME 20.1 SEC (11.4-15.4)
[2018-06-19 12:26] LABS: A TYPE INFLUENZA AG NEGATIVE (NEGATIVE); B INFLUENZA AG NEGATIVE (NEGATIVE)
[2018-06-19 12:27] LABS: ALANINE AMINOTRANSFERASE 72 U/L (9-52); ALBUMIN 3.6 g/dL (3.5-5.0); ALKALINE PHOSPHATASE 60 U/L (38-126); ANION GAP 10 (5-19); ASPARTATE AMINO TRANSFERASE 124 U/L (14-36); BILIRUBIN,DIRECT 0.6 mg/dL (0.0-0.4); BILIRUBIN,TOTAL 0.6 mg/dL (0.2-1.3); BLOOD UREA NITROGEN 28 mg/dL (7-20); CALCIUM 8.5 mg/dL (8.4-10.2); CARBON DIOXIDE 27 mmol/L (22-30); CHLORIDE 100 mmol/L (98-107); GLUCOSE 134 mg/dL (75-110); POTASSIUM 3.5 mmol/L (3.6-5.0); TOTAL PROTEIN 6.2 g/dL (6.3-8.2)
--- NOTE | 2018-06-19 12:31 | RADIOLOGY REPORT (SQ) ---
EXAM DESCRIPTION: CHEST 2 VIEWS COMPLETED DATE/TIME: 06/19/2018 12:06 pm REASON FOR STUDY: Cough and congestion and fever, dialysis patient COMPARISON: Chest film 04/24/2018 EXAM PARAMETERS: NUMBER OF VIEWS: two views TECHNIQUE: Digital Frontal and Lateral radiographic views of the chest acquired. RADIATION DOSE: NA LIMITATIONS: none FINDINGS: LUNGS AND PLEURA: No opacities, masses or pneumothorax. No pleural effusion. MEDIASTINUM AND HILAR STRUCTURES: No masses or contour abnormalities. HEART AND VASCULAR STRUCTURES: Old sternotomy for CABG. Faintly radiopaque left coronary stents. Lester rderline cardiomegaly, stable. BONES: No acute findings. HARDWARE: Left-sided dual lead pacemaker. Right-sided central venous dialysis catheter tip in the cash perior vena cava/ right atrium OTHER: No other significant finding. IMPRESSION: NO ACUTE RADIOGRAPHIC FINDING IN THE CHEST. TECHNICAL DOCUMENTATION: JOB ID: [id number] [employer]- All Rights Reserved Reading location - IP/workstation name: [email or web address]
--- NOTE | 2018-06-19 16:40 | ER Document Report ---
ED General - General Chief Complaint: Abnormal Lab Results Stated Complaint: FLU SYMPTOMS Time Seen by Provider: 06/19/18 11:06 Primary Care Provider: ANNETTE AMARAL MD [Primary Care Provider] - Follow up as needed Notes: 77-year-old patient with recent heart valve replacement s/p AICD, end-stage renal disease on dialysis Friday/Friday/Friday, and CVA presents to the emergency department with cough and congestion times 3 weeks. She states it is gotten worse this week and has had a low-grade fever. She called her doctor this morning who told her to come to the emergency department. Patient is on Coumadin and had a recent INR check and was told it was high. Patient complains of cough, fever, chills, denies earache or sore throat, denies shortness of breath or chest pain, complains of nausea and diarrhea, denies any urinary symptoms. TRAVEL OUTSIDE OF THE [place] IN LAST 30 DAYS: No - Related Data Allergies/Adverse Reactions: codeine Allergy (Verified 06/19/18 10:38) Penicillins Allergy (Verified 06/19/18 10:38) Past Medical History - Social History Smoking Status: Unknown if Ever Smoked Family History: Reviewed & Not Pertinent Patient has suicidal ideation: No Patient has homicidal ideation: No - Past Medical History Cardiac Medical History: Reports: Hx Congestive Heart Failure, Hx Hypercholesterolemia, Hx Hypertension Neurological Medical History: Reports: Hx Cerebrovascular Accident - Right-sided weakness Endocrine Medical History: Reports: Hx Diabetes Mellitus Type 2 Renal/ Medical History: Denies: Hx Peritoneal Dialysis GI Medical History: Reports: Hx Gastroesophageal Reflux Disease Psychiatric Medical History: Denies: Hx Depression Past Surgical History: Reports: Hx Bowel Surgery, Hx Open Heart Surgery - x2- replaced mitral valve, Hx Valve Replacement Review of Systems - Review of Systems Constitutional: See HPI EENT: See HPI Cardiovascular: See HPI Respiratory: See HPI Gastrointestinal: See HPI Genitourinary: See HPI Female Genitourinary: No symptoms reported Musculoskeletal: No symptoms reported Skin: No symptoms reported Hematologic/Lymphatic: No symptoms reported Neurological/Psychological: No symptoms reported Physical Exam - Vital signs Vitals: Temp Pulse Resp BP Pulse Ox 99.3 F 86 22 H 140/65 H 97 06/19/18 10:42 06/19/18 10:42 06/19/18 10:42 06/19/18 10:42 06/19/18 10:42 - Notes Notes: PHYSICAL EXAMINATION: Reviewed vital signs and charting by RN GENERAL: Alert, interacts well. Mild distress. HEAD: Normocephalic, atraumatic. EYES: Pupils equal, round. Extraocular movements intact. ENT: Oral mucosa moist NECK: Full range of motion. Supple. Trachea midline. LUNGS: Clear to auscultation bilaterally, diffuse wheezes, rales, or rhonchi. No respiratory distress. HEART: Regular rate and rhythm. No murmur ABDOMEN: soft, non-tender. Non-distended. Bowel sounds present in all 4 quadrants. no McBurney's point tenderness, no Rodas sign. EXTREMITIES: Moves all 4 extremities spontaneously. No edema, No cyanosis. PSYCH: Normal affect, normal mood. SKIN: Warm, dry, normal turgor. No rashes or lesions noted. Course - Re-evaluation Re-evalutation: 06/19/18 16:46 Patient is sleeping in the bed in no acute distress. Chest x-ray negative for any pulmonary infiltrate indicating pneumonia. Afebrile. No leukocytosis but her cell lines are down possibly indicating a viral illness. INR 1.68 which is out of range for her. Her range is 2.5-3.5. I attempted to call Dr. Flores's office but the office was closed. She does have diffuse wheezing so I will give her a breathing treatment and some Tylenol. Negative for influenza. 06/19/18 18:12 Pt given breathing treatment, reassessed with diffuse wheezing. Second breathing treatment ordered. Will add a troponin. 06/19/18 18:17 06/19/18 19:02 Troponin resulted at 0.037. Patient denies any chest pain. It is most likely due to chronic kidney disease. Discussed patient with Dr. Moody. Do not feel this patient needs to be admitted, will give her a 3-day course of steroids with instructions for a sliding scale because she has insulin dependent diabetes mellitus. We discussed that the benefits most likely will outweigh the risks considering she has a respiratory pathology. I was also concern for pneumonia that may not have blossomed yet on chest x-ray so plan is to start a course of doxycycline to cover her for community-acquired pneumonia. I gave her and her daughter very strict return precautions to follow-up with her primary care doctor on Friday morning or if things get worse to come back to the emergency department this weekend. Patient SPO2 97% on room air, not tachycardic, normotensive. At this time patient is stable for discharge, again with return precautions that are very strict. - Vital Signs Vital signs: Temp Pulse Resp BP Pulse Ox 100.2 F 86 22 H 119/58 L 97 06/19/18 18:23 06/19/18 18:23 06/19/18 10:42 06/19/18 18:23 06/19/18 18:23 - Laboratory Result Diagrams: 06/19/18 11:39 06/19/18 11:39 Laboratory results interpreted by me: 06/19/18 06/19/18 06/19/18 11:39 11:39 11:39 WBC 3.7 L RBC 3.43 L Hgb 10.3 L Hct 31.4 L RDW 17.2 H Plt Count 137 L PT 20.1 H Potassium 3.5 L BUN 28 H Creatinine 3.92 H Est GFR ( Amer) 13 L Est GFR (Non-Af Amer) 11 L Glucose 134 H Direct Bilirubin 0.6 H AST 124 H ALT 72 H Total Protein 6.2 L Discharge - Discharge Clinical Impression: Wheezing, Subtherapeutic anticoagulation, Bronchitis Condition: Good Disposition: HOME, SELF-CARE Instructions: Bronchitis ([facility]) Additional Instructions: You were seen for symptoms most consistent with bronchitis. This can take up to 12 weeks to fully resolve. This is generally due to a viral infection. Please follow-up with your primary doctor in the next 2-3 days. Return if you develop worsening cough, vomiting, fever >102, pass out, begin coughing blood, or have any other symptoms that are concerning to you. Because end-stage renal disease puts you in an immunocompromised state, I am still going to prescribe the antibiotics that you should take because I want to make sure that we are not in the early stages of a pneumonia. Also, I have prescribed you an inhaler and spacer that you can use for shortness of breath. Instructions as we discussed. Also, I am giving you a 3-day course of steroids that you can take. Please check your blood sugar at least 3 times a day as it can increase your blood sugar. Have also included instructions for a sliding scale that you can use to take insulin based on the level of your blood glucose. Blood Glucose <150 0 units 150-200 2 units 201-250 4 units 251-300 6 units 301-350 8 units 351-400 10 units >400 please call your physician. If you have any concerns please immediately return to the emergency department. Please follow-up with your primary care doctor on Friday morning. Referrals: ANNETTE AMARAL MD [Primary Care Provider] - Follow up as needed
[2018-06-19] MEDS ORDERED: ACETAMINOPHEN 325 MG TABLET PO ONE (16:45)
[2018-06-19] MEDS ORDERED: IPRATROPIUM/ALBUTEROL 0.5-2.5 MG/3 ML AMPUL NEB ONE (16:45)
[2018-06-19] MEDS ORDERED: ALBUTEROL SULFATE 0.083% NEB 2.5 MG/3 ML AMPUL NEB ONE (18:12)
[2018-06-19] MEDS ORDERED: ALBUTEROL SULFATE HFA (90 MCG/PUFF) 8 GM MDI (1 MDI/ER DISP) IH ONE (19:00)
[2018-06-19] MEDS ORDERED: DOXYCYCLINE HYCLATE 100 MG TABLET PO ONE (19:23)
[2018-06-19] MEDS ORDERED: PREDNISONE 20 MG TABLET PO ONE (19:34)
[2018-06-19 20:01] VITALS: BP 110/61
== END 2018-06-19 20:01 | disposition home or self-care (01) ==
LOC: ER 10:36
DX: J40 Bronchitis, not specified as acute or chronic (principal); R06.2 Wheezing; R79.1 Abnormal coagulation profile; R50.9 Fever, unspecified; R05 Cough; R11.0 Nausea; R19.7 Diarrhea, unspecified; Z79.01 Long term (current) use of anticoagulants; Z95.810 Presence of automatic (implantable) cardiac defibrillator; I50.9 Heart failure, unspecified; I11.0 Hypertensive heart disease with heart failure; E11.9 Type 2 diabetes mellitus without complications
CPT/HCPCS: 94640 ×2; 99283; 36415; 85025; 85610; 80053; 84484; 87804; 71046; A9270 ×5; J3490; J7512; J7620